=== PATIENT | female | born 1995 | race Caucasian/White ===

== ENCOUNTER 2020-07-22 14:18 | Outpatient (CLI) | payer OTHER, SELFPAY ==
--- NOTE | 2020-07-22 | ECHO_ITS ---
Patient Info Name: Jessica Garibay Age: 25 years : 1995 Gender: Female Ht: 67 in Wt: 135 lbs BSA: 1.70 m2 HR: 80 bpm BP: 114 / 75 mmHg Heart Rhythm: Sinus Rhythm Technical Quality: Good Exam Date: 07/22/2020 2:53 PM Exam Location: [facility] Pulmonary Patient Status: Outpatient Admit Date: 07/22/2020 Staff Ordering Physician: NEELAM SANCHEZ Sales And Merchandising Associate: Martin Chandler RDCS Attending Provider: NEELAM SANCHEZ Referring Physician: DANIEL DECKER; Exam Type: CA echo doppler color flow Study Info Indications R42 - Dizziness and giddiness Complete two-dimensional, color flow and Doppler transthoracic echocardiogram is performed. Strain analysis performed. History/Risk Factors Dizziness and lightheadedness; . Summary 1. Left ventricular systolic function is normal, estimated at 60-65%. 2. There is no increased left ventricular wall thickness. 3. The left ventricular diastolic function is normal. 4. Global longitudinal strain is normal at -19 %. 5. No pulmonary hypertension, estimated pulmonary arterial systolic pressure is 30 mmHg. 6. There is trace tricuspid valve regurgitation. 7. There is trace mitral valve regurgitation. 8. There is no aortic valve stenosis. Left Ventricle Left ventricular chamber dimension is normal. Left ventricular systolic function is normal, estimated at 60-65%. There is no increased left ventricular wall thickness. The left ventricular diastolic function is normal. Global longitudinal strain is normal at -19 %. Right Ventricle Right ventricular chamber dimension is normal. Right ventricular systolic function is normal. Left Atria Left atrial chamber dimension is normal. Right Atria Right atrial chamber dimension is normal. Aortic Valve The aortic valve is probable trileaflet. There is no aortic valve stenosis. There is no aortic valve regurgitation. Pulmonic Valve The pulmonic valve is not well visualized. There is trace pulmonic regurgitation. Mitral Valve The mitral valve has normal leaflets. There is trace mitral valve regurgitation. Tricuspid Valve The tricuspid valve leaflets are normal. There is trace tricuspid valve regurgitation. No pulmonary hypertension, estimated pulmonary arterial systolic pressure is 30 mmHg. Pericardium/Pleural The pericardium appears normal. There is no pericardial effusion. Inferior Vena Cava Normal inferior vena cava with >50% collapse upon inspiration consistent with normal right atrial pressure, 5 mmHg. Aorta The aortic root size at the sinus of Valsalva is normal. Left Ventricular Outflow Tract Name Value Normal LVOT 2D LVOT Diameter 2.0 cm LVOT Doppler LVOT Peak Gradient 6 mmHg LVOT Mean Gradient 4 mmHg LVOT VTI 25 cm LVOT VTI/AV VTI Ratio 0.9 LVOT Stroke Volume 76 ml LVOT CO 5.6 l/min LVOT CI 3.3 l/min/m2 Mitral Valve
== END 2020-07-22 14:19 | disposition home or self-care (01) ==
DX: Z34.92 Encounter for supervision of normal pregnancy, unspecified, second trimester (principal); R42 Dizziness and giddiness; Z3A.15 15 weeks gestation of pregnancy
CPT/HCPCS: 93306

== ENCOUNTER 2020-11-06 21:58 | Observation (INO) | payer OTHER, SELFPAY ==
--- NOTE | 2020-11-06 21:58 | OBADM ---
This patient, Jessica Garibay, admitted to the OB room OB Post 117 for observation. Patient/family oriented to hospital policies and general routines including ID bracelet, bed and alarms, visiting hours, pain management, procedures, bathroom and other care routines, personal items, smoking policy, room service/diet, and visiting hours. Patient/Family are encouraged to report perceived risks to care and to ask questions if they do not understand what they are told or what they should do.
[2020-11-06 22:09] VITALS: BP 126/83; PULSE 75; RESP 18; TEMP 36.7
--- NOTE | 2020-12-07 20:34 | PM.OBTRLD ---
OB - Triage/Final Diagnosis Visit Information Comments/Additional reasons for admission: I have assessed the risk for this patient, Jessica Garibay, and determined that she would benefit from observation care. Final Diagnosis (1) Pelvic pain: Code(s): R10.2 - Pelvic and perineal pain Status: Acute
== END 2020-11-06 23:03 | disposition home or self-care (01) ==
PROVIDERS: Admitting Provider Obstetrics & Gynecology; Visit Provider Obstetrics & Gynecology
DX: O26.893 Other specified pregnancy related conditions, third trimester (principal); R10.2 Pelvic and perineal pain; Z3A.34 34 weeks gestation of pregnancy
CPT/HCPCS: G0378; G0379

== ENCOUNTER 2020-12-07 06:16 | Outpatient (CLI) | payer OTHER, SELFPAY ==
[2020-12-07] VITALS (7 sets, daily range): BP systolic 111–125; BP diastolic 77–86; PULSE 73–82
[2020-12-07 06:47] LABS: Basophils Percent Auto 0.4 % (0.2-1.2); Eosinophils Absolute Auto 0.1 K/mm3 (0-0.3); Eosinophils Percent Auto 1.3 % (0-4.4); Hematocrit 36.4 % (37.0-47.0); Hemoglobin 11.7 g/dL (12.0-15.0); Immature Granulocyte Absolute 0.12 K/mm3 (0.00-0.031); Immature Granulocyte Percent A 1.1 % (0-0.5); Lymphocytes Absolute Auto 2.53 K/mm3 (0.9-3.2); Lymphocytes Percent Auto 22.6 % (18.3-44.2); Mean Corpuscular HGB Conc 32.1 g/dl (32-36); Mean Corpuscular Hemoglobin 28.7 pg (26-34); Mean Corpuscular Volume 89.2 fl (80-100); Mean Platelet Volume 9.6 fl (7.4-10.4); Monocytes Absolute Auto 0.5 K/mm3 (0.1-0.6); Monocytes Percent Auto 4.1 % (2.6-8.5); Neutrophils Absolute Auto 7.9 K/mm3 (1.3-6.7); Neutrophils Percent Auto 70.5 % (45.5-73.1); Platelet Count Result 347 k/mm3 (150-375); Red Blood Count 4.08 M/mm3 (4.2-5.4); Red Cell Distribution Width 13.4 % (11.5-14.5); White Blood Count 11.2 K/mm3 (4.5-10.0)
[2020-12-07 06:52] LABS: Add Urine Microscopic? YES; Appearance Urine Cloudy (Clear); Bacteria Urine 2+ /hpf; Bilirubin Urine Negative (Negative); Blood Urine Negative (Negative); Color Urine Yellow (Yellow); Glucose Urine UA Negative (Negative); Ketones Urine Negative (Negative); Leukocyte Esterase Ur Negative LEU/UL (NEGATIVE); Mucus Urine Rare /lpf; Nitrate Urine Negative (Negative); Protein Urine Negative (Negative); RBC Urine 0-2 /hpf (0-2); Specific Grav Ur 1.017 (1.001-1.035); Squamous Epithelial Cell Urine Many /hpf (Few); Transitional Epi Cells Urine Rare /hpf (None Seen); Urobilinogen Urine Negative mg/dL (<2.0)
[2020-12-07 07:17] LABS: Creatinine Urine 120.5 mg/dL; Total Protein Urine Random 8 mg/dL; Ur Ttl Prot Creatinine Ratio 0.07 mg/mg (0-0.20)
[2020-12-07 07:21] LABS: Alanine Aminotransferase 8 U/L (4-35); Albumin Level 3.8 g/dL (3.5-5.1); Alkaline Phosphatase 162 U/L (38-126); Anion Gap 6 mmol/L (8-16); Aspartate Amino Transferase 21 U/L (14-36); Bilirubin,Total 0.4 mg/dL (0.2-1.3); Blood Urea Nitrogen 7 mg/dL (7-17); Calcium 9.3 mg/dL (8.4-10.2); Carbon Dioxide 23 mmol/L (22-30); Chloride 104 mmol/L (98-107); Estimated Glomerular Filt Rate > 60; Glucose 84 mg/dL (65-105); Potassium 3.9 mmol/L (3.4-5.0); Sodium 133 mmol/L (137-145); Uric Acid 2.7 mg/dL (2.5-7.5)
--- NOTE | 2020-12-07 07:43 | PC.NURSE ---
Stephen Langley notified of upper right abd pain that shoots into her back. WNL and PIH labs. OK to dc home with labor precautions.
== END 2020-12-07 07:50 | disposition home or self-care (01) ==
LOC: ANHOBOP 06:20 → ANHOBPP 06:23
PROVIDERS: PCP Nurse Practitioner Family; Visit Provider Obstetrics & Gynecology
DX: R10.9 Unspecified abdominal pain (principal); O13.9 Gestational [pregnancy-induced] hypertension without significant proteinuria, unspecified trimester; Z3A.00 Weeks of gestation of pregnancy not specified
CPT/HCPCS: 36415; 59025; 80053; 81001; 82570; 84156; 84550; 85025; 87086; 99199

== ENCOUNTER 2020-12-09 14:35 | Inpatient (IN) | payer OTHER, SELFPAY ==
[2020-12-09] VITALS (51 sets, daily range): BP systolic 83–153; BP diastolic 50–124; PULSE 35–130; RESP 16; TEMP 36.2–36.8; O2SAT 93–100; BMI 25.2
[2020-12-09 15:09] LABS: Basophils Percent Auto 0.3 % (0.2-1.2); Eosinophils Absolute Auto 0.1 K/mm3 (0-0.3); Hematocrit 36.4 % (37.0-47.0); Immature Granulocyte Absolute 0.12 K/mm3 (0.00-0.031); Immature Granulocyte Percent A 1.1 % (0-0.5); Lymphocytes Absolute Auto 1.99 K/mm3 (0.9-3.2); Lymphocytes Percent Auto 17.9 % (18.3-44.2); Mean Corpuscular Hemoglobin 29.1 pg (26-34); Mean Corpuscular Volume 88.1 fl (80-100); Mean Platelet Volume 9.7 fl (7.4-10.4); Monocytes Absolute Auto 0.4 K/mm3 (0.1-0.6); Monocytes Percent Auto 3.1 % (2.6-8.5); Neutrophils Absolute Auto 8.5 K/mm3 (1.3-6.7); Neutrophils Percent Auto 76.6 % (45.5-73.1); Platelet Count Result 341 k/mm3 (150-375); Red Blood Count 4.13 M/mm3 (4.2-5.4); Red Cell Distribution Width 13.7 % (11.5-14.5); White Blood Count 11.1 K/mm3 (4.5-10.0)
[2020-12-09 15:20] LABS: Alanine Aminotransferase 8 U/L (4-35); Albumin Level 3.9 g/dL (3.5-5.1); Alkaline Phosphatase 170 U/L (38-126); Anion Gap 9 mmol/L (8-16); Aspartate Amino Transferase 21 U/L (14-36); Bilirubin,Total 0.3 mg/dL (0.2-1.3); Blood Urea Nitrogen 5 mg/dL (7-17); Carbon Dioxide 22 mmol/L (22-30); Chloride 105 mmol/L (98-107); Estimated Glomerular Filt Rate > 60; Glucose 106 mg/dL (65-105); Potassium 3.9 mmol/L (3.4-5.0); Sodium 136 mmol/L (137-145); Uric Acid 2.6 mg/dL (2.5-7.5)
[2020-12-09] MEDS: LACTATED RINGERS 1,000 ML 125 ML IV CONT ×2 (15:29→19:35)
[2020-12-09] MEDS: OXYTOCIN 30 UNITS/NS 500 ML 30 UNITS/500 ML BAG 6 UNITS IV CONT (15:30)
[2020-12-09] MEDS: ONDANSETRON INJ 4 MG/2 ML VIAL IV PUSH (16:05)
--- NOTE | 2020-12-09 16:40 | WPDANESEPPF ---
Anes - Initial Pre Proc Eval Procedure: labor epidural Date/Time: 12/09/20 16:40 Surgeon: Andreia Cerda MD Pre Op Diagnosis: labor pain Pre Op Diagnosis: iol Patient Data Age: 25 Gender: F Height: 1.7 m Weight: 73 kg Last Vital Signs Temp 36.6 C 12/09/20 15:30 Pulse 69 12/09/20 16:30 BP 122/70 12/09/20 16:30 Allergies Allergy/AdvReac Type Severity Reaction Status Date / Time No Known Allergies Allergy Verified 11/17/20 13:38 Home Medications Medication Instructions Recorded Confirmed Type prenat.vits,mei,ywa-iqum-grfsl 1 tablet PO DAILY 11/17/20 11/17/20 History [ #2] valacyclovir [Valtrex] 500 mg PO BID 11/17/20 11/17/20 History Laboratory Tests 12/09/20 12/09/20 12/09/20 15:02 15:02 15:02 WBC 11.1 K/mm3 H K/mm3 (4.5-10.0) RBC 4.13 M/mm3 L M/mm3 (4.2-5.4) Hgb 12.0 g/dL g/dL (12.0-15.0) Hct 36.4 % L % (37.0-47.0) MCV 88.1 fl fl (80-100) MCH 29.1 pg pg (26-34) MCHC 33.0 g/dl g/dl (32-36) RDW 13.7 % % (11.5-14.5) Plt Count 341 k/mm3 k/mm3 (150-375) MPV 9.7 fl fl (7.4-10.4) Immature Gran % (Auto) 1.1 % H % (0-0.5) Neut % (Auto) 76.6 % H % (45.5-73.1) Lymph % (Auto) 17.9 % L % (18.3-44.2) [place] % (Auto) 3.1 % % (2.6-8.5) Eos % (Auto) 1.0 % % (0-4.4) Baso % (Auto) 0.3 % % (0.2-1.2) Lymph # (Auto) 1.99 K/mm3 K/mm3 (0.9-3.2) Rush # (Auto) 0.4 K/mm3 K/mm3 (0.1-0.6) Eos # (Auto) 0.1 K/mm3 K/mm3 (0-0.3) Baso # (Auto) 0.0 K/mm3 K/mm3 (0.0-0.1) Abs Immat Gran (auto) 0.12 K/mm3 H K/mm3 (0.00-0.031) Absolute Neuts (auto) 8.5 K/mm3 H K/mm3 (1.3-6.7) Absolute Nucleated RBC 0.0 K/mm3 K/mm3 (0.0-0.012) Nucleated RBC % 0.0 % % (0.0-0.2) Sodium Potassium Chloride Carbon Dioxide Anion Gap BUN Creatinine Estim Creat Clear Calc Estimated GFR Glucose Uric Acid Calcium Total Bilirubin AST ALT Alkaline Phosphatase Total Protein Albumin RPR Pending Blood Type A Positive Antibody Screen Negative 12/09/20 15:02 WBC RBC Hgb Hct MCV MCH MCHC RDW Plt Count MPV Immature Gran % (Auto) Neut % (Auto) Lymph % (Auto) Rush % (Auto) Eos % (Auto) Baso % (Auto) Lymph # (Auto) Rush # (Auto) Eos # (Auto) Baso # (Auto) Abs Immat Gran (auto) Absolute Neuts (auto) Absolute Nucleated RBC Nucleated RBC % Sodium 136 mmol/L L mmol/L (137-145) Potassium 3.9 mmol/L mmol/L (3.4-5.0) Chloride 105 mmol/L mmol/L (98-107) Carbon Dioxide 22 mmol/L mmol/L (22-30) Anion Gap 9 mmol/L mmol/L (8-16) BUN 5 mg/dL L mg/dL (7-17) Creatinine 0.40 mg/dL L mg/dL (0.7-1.0) Estim Creat Clear Calc Not Reportable Estimated GFR > 60 (59 - ) Glucose 106 mg/dL H mg/dL (65-105) Uric Acid 2.6 mg/dL mg/dL (2.5-7.5) Calcium 9.0 mg/dL mg/dL (8.4-10.2) Total Bilirubin 0.3 mg/dL mg/dL (0.2-1.3) AST 21 U/L U/L (14-36) ALT 8 U/L U/L (4-35) Alkaline Phosphatase 170 U/L H U/L (38-126) Total Protein 7.0 g/dL g/dL (6.3-8.2) Albumin 3.9 g/dL g/dL (3.5-5.1) RPR Blood Type Antibody Screen Patient hx anesthesia problems: none Family hx anesthesia problems: none PMFSH Past Medical History Medical History (Updated 12/09/20 @ 16:41 by Santos Montoya DO) Mitral valve regurgitation Panic disorder PTSD (post-traumatic stress diso
--- NOTE | 2020-12-09 17:39 | WPDOBADMIT ---
Obstetrics - Admit Note Admission Note: record reviewed. No pertinent additions to the history and/or any subsequent changes in the physical findings that are not consistent with the expected course of the were found. Additions to the history and/or subsequent changes in the physical findings follow. None. 39.0 with elevated BPs 150-160/90s in office today. BPs wnl here. PIH labs pending. FHT category 1. pitocin on. AROM /-2 clear. Anticipate .
[2020-12-09 18:17] LABS: Amphetamine Screen Urine Negative (Negative); Barbiturate Screen Urine Negative (Negative); Benzodiazepines Screen Urine Negative (Negative); Cannabinoid Screen Urine Positive (Negative); Cocaine Screen Urine Negative (Negative); Methadone Screen Urine Negative (Negative); Opiate Screen Urine Negative (Negative); Phencyclidine Screen Urine Negative (Negative)
--- NOTE | 2020-12-09 21:01 | PM.OBPRVD ---
OB - Delivery Note Procedure Delivery date: 12/09/20 Procedure: events: Induced HTN Intrapartal events: Precipitous Labor < 3 hours Induction method: AROM and per pitocin protocol Delivery monitor: external FHT and external uterine Route of delivery: Laceration Description: None Specimen: No Quantitative Blood Loss (ml): 200 Anesthesia type: Epidural Disposition: floor Narrative: With adequate expulsive efforts by the mother, the baby's head was delivered OA. The baby's anterior shoulder was delivered under the pubic symphysis without difficulty. The posterior shoulder and the rest of the baby delivered without difficulty. The was placed on the mothers chest and suctioned and stimulated. The cord was clamped and cut after 30 seconds. Mother and baby both stable. Baby Date of : 12/09/20 Time of : 20:39 Weeks of gestation at delivery: 39 Infant gender: Male Weight (pounds): 7 Weight (ounces): 13 presentation: vertex Placenta delivery description: Spontaneous cord vessel description: 3 Vessels, Nuchal Cord and Delayed Cord Clamping score one minute: 9 score five minutes: 9
[2020-12-09] MEDS: OXYTOCIN 30 UNITS/NS 500 ML 30 UNITS/500 ML BAG 125 UNITS IV CONT (21:24)
[2020-12-09] MEDS: IBUPROFEN 600 MG TABLET PO (22:42)
[2020-12-09] MEDS: BENZOCAINE 20% AER SPR (*SP) 56 GM CAN 1 SPRAY TOPICAL (22:42)
[2020-12-09] MEDS: WITCH HAZEL 40 PADS 1 PAD TOPICAL (22:42)
--- NOTE | 2020-12-09 23:10 | OBPPTRN ---
Patient transferred to post room #284 via wheelchair. Support person present. Oriented to unit, room, information board, rooming in, admission packet and security measures. Patient verbalizes understanding. with patient.
[2020-12-10] MEDS: ACETAMINOPHEN 325 MG TABLET 650 MG PO ×2 (01:45→16:19)
[2020-12-10 04:25] VITALS: BP 111/66; PULSE 71; RESP 16; TEMP 36.5
[2020-12-10] MEDS: IBUPROFEN 600 MG TABLET PO ×2 (04:30→12:59)
[2020-12-10 05:35] LABS: Hematocrit 32.1 % (37.0-47.0); Hemoglobin 10.5 g/dL (12.0-15.0)
[2020-12-10 07:00] LABS: Rapid Plasma Reagin Non-Reactive (NonReactive)
--- NOTE | 2020-12-10 07:45 | PM.OBPNVD ---
OB - PN: Subj Subjective Date/time seen: 12/10/20 07:45 Patient comments: no complaints baby status: doing well OB - PN: Obj Data Labs CBC & Chem 7: 12/10/20 04:33 12/09/20 15:02 Labs: Laboratory Results - last 24 hr 12/09/20 12/09/20 12/09/20 15:02 15:02 15:02 WBC 11.1 H RBC 4.13 L Hgb 12.0 Hct 36.4 L MCV 88.1 MCH 29.1 MCHC 33.0 RDW 13.7 Plt Count 341 MPV 9.7 Immature Gran % (Auto) 1.1 H Neut % (Auto) 76.6 H Lymph % (Auto) 17.9 L [place] % (Auto) 3.1 Eos % (Auto) 1.0 Baso % (Auto) 0.3 Lymph # (Auto) 1.99 [place] # (Auto) 0.4 Eos # (Auto) 0.1 Baso # (Auto) 0.0 Abs Immat Gran (auto) 0.12 H Absolute Neuts (auto) 8.5 H Absolute Nucleated RBC 0.0 Nucleated RBC % 0.0 Sodium Potassium Chloride Carbon Dioxide Anion Gap BUN Creatinine Estim Creat Clear Calc Estimated GFR Glucose Uric Acid Calcium Total Bilirubin AST ALT Alkaline Phosphatase Total Protein Albumin Urine Opiates Screen Urine Methadone Screen Ur Barbiturates Screen Ur Phencyclidine Scrn Ur Amphetamine Screen U Benzodiazepines Scrn Urine Cocaine Screen U Cannabinoids Screen RPR Non-reactive Blood Type A Positive Antibody Screen Negative 12/09/20 12/09/20 12/10/20 15:02 15:02 04:33 WBC RBC Hgb 10.5 L Hct 32.1 L MCV MCH MCHC RDW Plt Count MPV Immature Gran % (Auto) Neut % (Auto) Lymph % (Auto) [place] % (Auto) Eos % (Auto) Baso % (Auto) Lymph # (Auto) [place] # (Auto) Eos # (Auto) Baso # (Auto) Abs Immat Gran (auto) Absolute Neuts (auto) Absolute Nucleated RBC Nucleated RBC % Sodium 136 L Potassium 3.9 Chloride 105 Carbon Dioxide 22 Anion Gap 9 BUN 5 L Creatinine 0.40 L Estim Creat Clear Calc Not Reportable Estimated GFR > 60 Glucose 106 H Uric Acid 2.6 Calcium 9.0 Total Bilirubin 0.3 AST 21 ALT 8 Alkaline Phosphatase 170 H Total Protein 7.0 Albumin 3.9 Urine Opiates Screen Negative Urine Methadone Screen Negative Ur Barbiturates Screen Negative Ur Phencyclidine Scrn Negative Ur Amphetamine Screen Negative U Benzodiazepines Scrn Negative Urine Cocaine Screen Negative U Cannabinoids Screen Positive A RPR Blood Type Antibody Screen OB - PN A/P Plan day: 1 Plan: routine care Time Spent With Patient Time: Total time spent is greater than 50% in coordination of care (as documented) at patient's floor/unit and/or counseling patient: Review of Systems Review of Systems: All systems reviewed & are unremarkable except as noted in HPI and below Exam Const: General: cooperative Nutritional Appearance: average body habitus and well nourished Psych: Attitude: cooperative Thought process: Normal thought process present Thought content: Yes Normal thought content present Insight: Good insight present (Psych) Judgement: Good judgement present (Psych)
[2020-12-10 08:05] VITALS: BP 113/69; PULSE 65; RESP 16; TEMP 36.8; O2SAT 100
[2020-12-10] MEDS: MULTIVIT/MIN/PREN/FOL AC/IRON TABLET 1 TAB PO (08:49)
--- NOTE | 2020-12-10 08:55 | PC.NURSE ---
Mother called out for assist with feeding. reporting is sleepy. Reviewed feeding cues, frequencies, duration of feedings, feeding elimination flow sheet, and signs of adequate intake. Demonstrated stimulation techniques to wake for feeding. Assisted with to breast. Mother was attempting latch with infant on pillow and dropping nipple into his mouth. Reviewed positioning/alignment in cross cradle, holding breast in ?U? hold and guided asymmetrical latch on. Infant able to latch correctly. nursed eagerly, with steady draws and frequent swallowing noted. Reviewed signs of a correct latch, effective nursing and suck swallow ratio. Infant would slip to shallow latch, mother reports tenderness. Demonstrated how to adjust latch more deeply while feeding. Mother reports she can feel change in latch and has no tenderness. Nipple care reviewed of lanolin after feedings, warm compresses as needed. Suggested mother stimulate while feeding to increase stimulate, increase intake and to assist with maintaining deep latch. Instructed mother to call out for RN assistance if she is unable to latch infant for feeding or she has discomfort with nursing. Instructed feeding should be initiated three hours from start of last feeding or if feeding cues are noted before. Mother voiced understanding of information shared.
--- NOTE | 2020-12-10 11:03 | WPDANLDPN2 ---
Anes-Prog Note L&D Date/Time: 12/10/20 11:03 Comfortable throughout: labor and delivery Neuraxial method: epidural Epidural/Spinal procedure site: clean & non-tender Neuro status: Neuro function grossly intact. Cardiovascular status: normal Respiratory status: normal Airway patency: baseline Mental status: baseline Post-Op hydration status: normal Vital Signs: Last Vital Signs Temp 36.8 C 12/10/20 08:05 Pulse 65 12/10/20 08:05 Resp 16 12/10/20 08:05 BP 113/69 12/10/20 08:05 Pulse Ox 100 12/10/20 08:05 Pain score (VAS): 0 I/O: Intake & Output 12/09/20 12/10/20 12/10/20 23:59 07:59 15:59 Intake Total 1000 Output Total 123 Balance 877 Post-procedural complaints: none Patient feedback: Patient satisfied with anesthetic care.
[2020-12-10 12:55] VITALS: BP 115/73; PULSE 68; RESP 16; TEMP 36.7; O2SAT 99
[2020-12-10 15:45] VITALS: BP 113/69; PULSE 70; RESP 16; TEMP 36.2; O2SAT 100
[2020-12-10 20:00] VITALS: BP 110/65; PULSE 66; PULSE 70; RESP 16; TEMP 36.6; O2SAT 100; O2SAT 97
[2020-12-11] MEDS: ACETAMINOPHEN 325 MG TABLET 650 MG PO ×2 (00:21→08:52)
[2020-12-11] MEDS: IBUPROFEN 600 MG TABLET PO (03:30)
--- NOTE | 2020-12-11 07:37 | PM.OBPNVD ---
OB - PN: Subj Subjective Date/time seen: 12/11/20 07:37 Patient comments: no complaints baby status: doing well OB - PN: Obj Data Labs CBC & Chem 7: 12/10/20 04:33 12/09/20 15:02 OB - PN A/P Plan day: 2 Plan: routine care and discharge home (F/U in 1 week for bp check) Time Spent With Patient Time: Total time spent is greater than 50% in coordination of care (as documented) at patient's floor/unit and/or counseling patient: Time with patient: less than 15 minutes Review of Systems Review of Systems: All systems reviewed & are unremarkable except as noted in HPI and below Exam Narrative: Exam Narrative: Fundus firm and vaginal flow controlled. No lower ext redness, warmth, or edema. Negative homans. Denies h/a, v/d or e/p. Reflexes normal. Const: General: comfortable Chest: Breast/axilla inspection: normal inspection of the breasts Resp: Effort & Inspection: normal respiratory effort Cardio: Rate: regular rate GI: GI Palp: Yes Soft to palpation Psych: Appearance: grossly normal Affect: normal affect Attitude: cooperative Thought content: Yes Normal thought content present Judgement: Good judgement present (Psych)
[2020-12-11 07:55] VITALS: BP 123/83; PULSE 60; RESP 16; TEMP 36.6; O2SAT 100
[2020-12-11] MEDS: DOCUSATE SODIUM 100 MG CAPSULE PO (08:54)
[2020-12-11] MEDS: MULTIVIT/MIN/PREN/FOL AC/IRON TABLET 1 TAB PO (08:55)
--- NOTE | 2020-12-11 11:30 | PC.NURSE ---
Mother is able to independently latch infant with appropriate positioning/alignment. Mother has slight tenderness that she feels is resolving with deeper latch, is feeding as required and waking to feed if needed. has had at least 8 effective feedings in the past 24 hours, and is currently meeting outcomes for weight, output, jaundice and feeding frequencies. Mother states she feels confident to continue effective at home. Reviewed transition to breast milk, signs of adequate intake, and engorgement/relief. Instructed to call ICP if intake/output less than required. Reviewed regular medications mother is taking. Information provided per Graciela. Reviewed community resources on [facility] and in the Mom/Baby guide. Information on outpatient services provided. Mother has no further questions at this time.
--- NOTE | 2020-12-11 13:17 | PCCCNOTE ---
Addendum entered by JUDITH Barrientos 12/11/20 15:19: Received email confirmation that DCFS will contact family to offer in home services. Original Note: Care Coordination Consult: Met with pt. and PRINCE Lynch during rounds. This is pt.'s second child, first child is 3 years old at home. This is Syed's first child. Pt. lives at home with Syed. Pt. has supportive family. Has all necessary supplies at home including a carseat, cribs, clothing, and diapers. Pt. plans to breastfeed. Pt. was educated and provided resources for and using marijuana. Also was provided resources. Pt. plans to use [facility] services at discharge. Reports she recreationally smokes marijuana and has spoken to her oven equipment repairer about smoking and . Pt. declines a reliance on the marijuana. Baby meconium pending. Submitted online DCFS report # [id number].
--- NOTE | 2020-12-11 14:34 | PC.NURSE ---
1225 Pt and FOB stated they reviewed pt's and baby's discharge papers, and had no questions for nurse. Mother signed discharge papers in understanding.
[2020-12-12 07:50] VITALS: BP 113/62; PULSE 73; RESP 16; TEMP 37.3; O2SAT 98
--- NOTE | 2020-12-27 10:11 | PM.OBDSVD ---
DS: Admitting Diagnosis Admitting Diagnosis Admitting Diagnosis: Labor OB - DS: Summary OB Procedures : None OB Procedures Intrapartum: Spontaneous Vag Delivery OB Procedures: : None Time Spent with Patient Time attestation: Total time spent providing and/or coordinating discharge services: Discharge Plan Discharge Attending physician on discharge: Andreia Cerda Consulting providers: Tabby Canas ; Deloris Langley ; Santos Montoya Discharging Clinician: Ran Bertrand Patient Disposition: Home, Self-Care Activity: pelvic rest Diet: as tolerated Discharge Instructions: Education: Mom and Baby Guide Given to: Mother Follow-Up: Call your delivering provider's office for an appointment to be seen in: 4 Weeks Mom and baby should come to the [facility] for the follow-up appointment. Appointment Date/Time: December 12, 2020 at 8:00 am What to expect at your follow-up visit: Blood Pressure Check Physical Assessment Call [phone] if you are unable to keep your appointment time. BREAST CARE: * Wear a snug supportive bra. * For engorgement discomfort: Breast Feeding: * Apply warm moist washcloths * Express milk as needed to relieve engorgement * Wear loose clothing * For sore nipples: * Identify correct latch-on * Apply warm moist washcloths before and after nursing * Air dry nipples after nursing * May apply Lansinoh cream to nipples EPISIOTOMY/PERINEAL CARE: * Until bleeding stops, use your franky bottle after urinating * Change your pad frequently throughout the day * You may take sitz baths several times a day (fill your bathtub with warm water and soak for 20 minutes.) Do NOT bathe in the water * No tub baths until seen by your physician - You may shower ACTIVITY: * Rest as much as possible. * Do not exercise or lift anything heavier than your baby (such as laundry or other children.) * Avoid stairs or driving as much as possible. * Do not put anything into the vagina. No douching, tampons, or sexual activity until seen by physician. NOTIFY PHYSICIAN IF YOU HAVE ANY QUESTIONS OR IF ANY OF THE FOLLOWING SYMPTOMS OCCUR: * If your perineum becomes red, swollen, or more painful than what you have experienced in the hospital. * If your vaginal bleeding becomes foul smelling. * If your vaginal bleeding becomes more heavy than a period or if your bleeding changes from pink to bright red. However, you may pass an occasional walnut-sized clot once or twice for the first week . * If you experience a sharp, shooting pain in you calves. * If you discover a hard, reddened area on your breast or if you experience flu-like symptoms. *Temperature of 100.4 or higher DIET: * Eat regular, well-balanced meals. * Drink plenty of fluids daily. If , drink to thirst. Stand Alone Forms: General Discharge Information Follow-up/Referrals: Andreia Cerda MD [Physician] - Discharge Medications: Continued valacyclovir [Valtrex] 500 mg Tablet 500 mg PO BID RF: 0 prenat.vits,mei,shr-ynmp-fnzpt Tablet 1 tablet PO DAILY RF: 0 famotidine [Pepcid] 20 mg Tablet 20 mg PO DAILY RF: 0 One Daily 1 tablet PO DAILY RF: 0 Date of admission: 12/09/20 14:35 Primary Care Provider: Dawn,Monika Reeder Admitting Provider: Andreia Cerda Attending physician on admission: Andreia Cerda Condition: Stable
== END 2020-12-11 12:42 | disposition home or self-care (01) | DRG 560 ==
LOC: ANHLDR 14:38 → ANHOB2 23:10
PROVIDERS: Admitting Provider Obstetrics & Gynecology; PCP Nurse Practitioner Family; Visit Provider Obstetrics & Gynecology
DX: O62.3 Precipitate labor (principal); O13.4 Gestational [pregnancy-induced] hypertension without significant proteinuria, complicating childbirth; O69.81X0 Labor and delivery complicated by cord around neck, without compression, not applicable or unspecified; Z3A.39 39 weeks gestation of pregnancy; Z37.0 Single live birth
CPT/HCPCS: 36415; 80053; 80307; 84550; 85014; 85018; 85025; 86592; 86850; 86900; 86901; A9270; J2405; J2590; J2795; J7120

== ENCOUNTER 2023-01-18 15:02 | Outpatient (CLI) | payer OTHER, SELFPAY ==
[2023-01-18 16:03] LABS: Lithium < 0.2 mmol/L (0.6-1.2)
== END 2023-01-18 15:03 | disposition home or self-care (01) ==
LOC: ANHSURGERY 15:05
PROVIDERS: Anesthesiology; PCP Nurse Practitioner Family; Visit Provider Obstetrics & Gynecology
DX: Z79.899 Other long term (current) drug therapy (principal)
CPT/HCPCS: 36415; 80178

== ENCOUNTER 2023-01-26 01:18 | Day surgery (SDC) | payer OTHER, SELFPAY ==
[2023-01-17 12:58] VITALS: BMI 20.6
--- NOTE | 2023-01-17 13:03 | PC.NURSE ---
Report to the Outpatient Waiting Room, entrance under the green pavilion located off [facility], at time 0600 on date 01/26/23. Planned Procedure Time: 0730. Time changes happen often and if your time is changed the preop area will call you the afternoon before. - You and your visitor will be asked to self-screen and do not enter if you have any COVID symptoms. - A mask is optional within the hospital at this time. Patients may have clear liquids (water, carbonated beverages, clear teas, apple juice) until 3 hours prior to surgery with a maximum of 20 ounces. - No food from midnight until time of surgery Take the following medications with a SIP of water the morning of surgery: HYDROXYZINE, LAMOTRIGINE, LITHIUM, VALACYCLOVIR DO NOT STOP ANY OF YOUR OTHER PRESCRIPTION MEDICATIONS PRIOR TO SURGERY ?EXCEPT THE FOLLOWING Medications to discontinue per physician: N/A Date to take last dose: N/A Please no make-up, nail estonian, hairspray, perfume, deodorant, or body powder the day of surgery. No jewelry (including any body piercings) or valuables the day of surgery, leave them at home. Please take a shower or bath the night before, or the morning of, surgery with an antibacterial soap. Wear comfortable, loose fitting clothing. - Jewelry must be removed prior to entering the operating room. Rings and piercings that are not removed may be cut off. - The hospital will not accept responsibility for valuables. - Please leave all valuables, including medications, at home the day of surgery. If you are going home after surgery, a licensed freight delivery driver must drive you home. - NO public transportation without another adult if you receive anesthesia. - We recommend that an adult stay with you for 24 hours following discharge. - We also recommend that you do not drive, make important decision, drink alcoholic beverages, or take any drugs that were not prescribed by your health care provider for at least 24 hours after your discharge time. Follow any additional instructions given to you from your surgeon. If you or anyone in your household have experienced Covid symptoms in the past week, please notify your surgeon or the nurse liaison at the phone number below for possible testing. Telephone instructions given to PT - ORI MCKNIGHT and asked if any additional questions and then verbalized understanding. Patient advised to call surgeon office or pre surgery nurse liaison [phone] if any additional questions.
[2023-01-26 06:29] VITALS: BP 130/84; PULSE 75; RESP 16; TEMP 36.9; O2SAT 99
[2023-01-26] MEDS: LACTATED RINGERS 1,000 ML 30 ML IV CONT (06:45)
[2023-01-26] MEDS: ACETAMINOPHEN 500 MG TABLET 1000 MG PO (06:48)
--- NOTE | 2023-01-26 07:00 | P.PNAN_ITS ---
Anes - Initial Pre Proc Eval Procedure: Operation Date: 01/26/23 07:30 Proposed Procedures p Loop Electrical Excision Procedure - Andreia Cerda MD Date/Time: 01/26/23 07:00 Surgeon: Andreia Cerda MD Pre Op Diagnosis: Marleni Patient Data Age: 27 Gender: F Height: 1.7 m Weight: 58.7 kg Last Vital Signs Temp 36.9 C 01/26/23 06:29 Pulse 75 01/26/23 06:29 Resp 16 01/26/23 06:29 BP 130/84 01/26/23 06:29 Pulse Ox 99 01/26/23 06:29 O2 Del Method Room Air 01/26/23 06:29 Allergies Allergy/AdvReac Type Severity Reaction Status Date / Time No Known Allergies Allergy Verified 01/26/23 06:15 Home Medications Medication Instructions Recorded Confirmed Type valacyclovir 500 mg tablet 500 mg PO BID 11/17/20 01/26/23 History (Valtrex) hydroxyzine pamoate 50 mg capsule 50 mg PO TID PRN Anxiety 01/17/23 01/26/23 History lamotrigine 200 mg tablet 200 mg PO DAILY 01/17/23 01/26/23 History lithium carbonate 300 mg 600 mg PO BID 01/17/23 01/26/23 History tablet,extended release medroxyprogesterone 150 mg/mL 150 mg IM [id number] 01/17/23 01/26/23 History intramuscular suspension Patient hx anesthesia problems: none Family hx anesthesia problems: none Results Review: All pre-operative results and documents have been reviewed as part of the pre- operative evaluation. [facility] Past Medical History Medical History Mitral valve regurgitation Panic disorder PTSD (post-traumatic stress disorder) Family History Family History Father Renal cancer Congestive heart failure Hypertension Grandparent Diabetes mellitus Mother IBS (irritable bowel syndrome) Social History Social History Smoking status: Current every day smoker Tobacco type: e-cigarettes/vaping Alcohol intake: never Substance use: never Substance use type: does not use Living arrangements: with family Additional living arrangements comments: BOYFRIEND AND CHILDREN Spiritual care concerns: No Anes - Eval Final PreProcedure Day of Procedure 01/26/23 07:00 Patient weight: normal Heart: regular rate and rhythm Lungs: clear to auscultation Airway: Mallampati scale class II Neurological: alert and oriented Last oral intake: >/= 8 hours ASA classification: III Emergent: no Anesthetic plan: proceed Anesthesia type and monitoring: general GIVS and standard monitoring Results Review: All pre-operative results and documents have been reviewed as part of the pre- operative evaluation. Informed Consent: The patient's anesthetic plan and its attendant risks and benefits were discussed with the patient/family/POA. Questions were solicited and answers provided to the satisfaction of the patient/family/POA.
--- NOTE | 2023-01-26 07:07 | PM.IMHP ---
H&P: HPI History of Present Illness Date/Time: 01/26/23 07:07 Chief Complaint: Jessica is a 27yo here for LEEP for CIN2. ECC was neg. Plans 1 more baby. ON depo provera currently. Review of Systems Review of Systems: All systems reviewed & are unremarkable except as noted in HPI and below PMFSH Past Medical History Medical History Mitral valve regurgitation Panic disorder PTSD (post-traumatic stress disorder) Family History Family History Father Renal cancer Congestive heart failure Hypertension Grandparent Diabetes mellitus Mother IBS (irritable bowel syndrome) Social History Social History Smoking status: Current every day smoker Tobacco type: e-cigarettes/vaping Alcohol intake: never Substance use: never Substance use type: does not use Living arrangements: with family Additional living arrangements comments: BOYFRIEND AND CHILDREN Spiritual care concerns: No Meds Home Medications and Allergies Home Medications Medication Instructions Recorded Confirmed Type valacyclovir 500 mg tablet 500 mg PO BID 11/17/20 01/26/23 History (Valtrex) hydroxyzine pamoate 50 mg capsule 50 mg PO TID PRN Anxiety 01/17/23 01/26/23 History lamotrigine 200 mg tablet 200 mg PO DAILY 01/17/23 01/26/23 History lithium carbonate 300 mg 600 mg PO BID 01/17/23 01/26/23 History tablet,extended release medroxyprogesterone 150 mg/mL 150 mg IM [id number] 01/17/23 01/26/23 History intramuscular suspension Allergies Allergy/AdvReac Type Severity Reaction Status Date / Time No Known Allergies Allergy Verified 01/26/23 06:15 Vital Signs Vital Signs - 24 hr 01/26/23 06:29 Temperature 98.4 F Pulse Rate 75 Respiratory Rate 16 Blood Pressure 130/84 Pulse Oximetry 99 Oxygen Delivery Room Air Exam Const: General: no acute distress Resp: Effort & Inspection: normal respiratory effort Auscultation: clear to auscultation bilaterally Cardio: Rate: regular rate Rhythm: regular rhythm GI: GI Palp: Yes Soft to palpation Extrem: General: normal to inspection Assessment and Plan Assessment and plan (1) BHAVIK II (cervical intraepithelial neoplasia II): Code(s): N87.1 - Moderate cervical dysplasia Status: Acute Plan LEEP for CIN2. Discussed RBA, will proceed.
--- NOTE | 2023-01-26 07:10 | WPDHPUPDATE1 ---
History and Physical Update Update Date/Time: 01/26/23 07:10 History and Physical has been reviewed, including an updated exam of the patient. There are NO changes in the patient's condition. Risks, benefits, and alternatives have been discussed and questions answered. Patient agrees to proceed with procedure.
[2023-01-26] MEDS: BUPivacaine HCL 0.25% PF 10 ML VIAL INFILTRATE (07:34)
[2023-01-26] MEDS: KETOROLAC 30 MG/ML VIAL (*BKC) IV PUSH (07:34)
[2023-01-26 07:45] VITALS: BP 88/49; PULSE 61; RESP 14; O2SAT 98
--- NOTE | 2023-01-26 07:45 | P.OP_ITS ---
Procedure Note - Detailed Date of Procedure 01/26/23 Pre-op Diagnosis CIN2 Post-op Diagnosis Same Procedure Performed Loop Electrosurgical Excision Procedure Surgeon Andreia Cerda MD [employer]ry Go Round Attendant none Anesthesia MAC Indications CIN2, ECC neg Findings very small area of dysplasia seen with lugols Description of Procedure The patient was taken to the OR and placed in dorthal lithotomy in [facility]. She received MAC anesthesia. A coated speculum with attached suction was placed and 10cc of 0.25% marcaine with epinephrine was instilled in a paracervical block. Lugols solution was placed on the cervix to highlight the dysplastic cells. Using loop cautery set to 50 cut, the dysplastic area was excised and send to pathology. Ball cautery set to 50 coagulate was used for hemostasis, followed by Monsel's solution. The speculum was removed. The patient tolerated the procedure well. Estimated Blood Loss 5 Drains No Packing No Pathology Yes Complications No immediate complications Condition Stable Disposition Same day
[2023-01-26 08:15] VITALS: BP 98/60; PULSE 61; RESP 20
[2023-01-26 08:40] VITALS: BP 109/78; PULSE 53; RESP 20
== END 2023-01-26 08:51 | disposition home or self-care (01) ==
PROVIDERS: PCP Nurse Practitioner Family; Visit Provider Obstetrics & Gynecology
PROC: 0UBC7ZZ Excision of Cervix, Via Natural or Artificial Opening (ICD-10-PCS; CPT 57522; principal; 2023-01-26 07:30)
DX: N87.1 Moderate cervical dysplasia (principal); I34.0 Nonrheumatic mitral (valve) insufficiency; F41.0 Panic disorder [episodic paroxysmal anxiety]; F43.10 Post-traumatic stress disorder, unspecified; F17.290 Nicotine dependence, other tobacco product, uncomplicated
CPT/HCPCS: 57522; 88307; A9270; J1885; J2250; J2704; J3010; J7120

== ENCOUNTER 2023-02-26 16:31 | Emergency (ER) | payer OTHER, SELFPAY ==
--- NOTE | ~2023-02-26 | CT_ITS ---
EXAMINATION: CT abdomen pelvis w con INDICATION: Lower abdominal pain TECHNIQUE: Computed tomographic images of the abdomen and pelvis were obtained after the administrati on of 100 cc of Omnipaque 350 intravenous contrast. The dose-length product (DLP) was 230.16 mGy-cm. Automated exposure control and iterative reconstruction technique were employed. COMPARISON: 11/20/2013 FINDINGS: The lung bases are clear. The heart size is normal. Punctate calcifications in an otherwise normal spleen likely represent healed granulomatous disease. The liver, pancreas, gallbladder, and a drenal glands are normal. The kidneys are unremarkable. No pathologically enlarged abdominal or pelvi c lymph nodes are identified. No free intraperitoneal gas or evidence of bowel obstruction. There is prominence of the periuterine veins. The visualized osseous structures are unremarkable. There is a s mall amount of free fluid in the pelvis, likely physiologic. IMPRESSION: 1. Prominence of the periuterine veins which can be seen with pelvic congestion syndrome. Reviewed, dictated and finalized at location F.
--- NOTE | ~2023-02-26 | US_ITS ---
EXAMINATION: US pelvic complete DATE: 02/26/2023 18:24 INDICATION: Left lower quadrant pain TECHNIQUE: Multiple transabdominal sonographic images of the pelvis were obtained. COMPARISON: None. FINDINGS: The uterus measures 7.9 x 2.1 x 4.8 cm. The endometrial complex measures 3 mm. The right ov shruthi measures 3.6 x 1.7 x 2.5 cm. The left ovary measures 2.9 x 1.9 x 2.1 cm. There is normal vascular flow in the ovaries. There is no free fluid in the pelvis. IMPRESSION: 1. No sonographic correlate for the patient's symptoms. Reviewed, dictated and finalized at location F.
[2023-02-26 16:32] VITALS: BP 112/71; PULSE 100; RESP 18; TEMP 36.7; O2SAT 98
[2023-02-26 16:54] LABS: Basophils Percent Auto 0.3 % (0.2-1.2); Eosinophils Percent Auto 0.1 % (0-4.4); Hematocrit 40.3 % (37.0-47.0); Hemoglobin 13.1 g/dL (12.0-15.0); Immature Granulocyte Absolute 0.04 K/mm3 (0.00-0.031); Immature Granulocyte Percent A 0.4 % (0-0.5); Lymphocytes Absolute Auto 0.19 K/mm3 (0.9-3.2); Mean Corpuscular HGB Conc 32.5 g/dl (32-36); Mean Corpuscular Hemoglobin 27.9 pg (26-34); Mean Corpuscular Volume 85.9 fl (80-100); Mean Platelet Volume 8.5 fl (7.4-10.4); Monocytes Absolute Auto 0.3 K/mm3 (0.1-0.6); Monocytes Percent Auto 3.2 % (2.6-8.5); Neutrophils Absolute Auto 8.9 K/mm3 (1.3-6.7); Platelet Count Result 338 k/mm3 (150-375); Red Blood Count 4.69 M/mm3 (4.2-5.4); Red Cell Distribution Width 12.6 % (11.5-14.5); White Blood Count 9.5 K/mm3 (4.5-10.0)
[2023-02-26 16:55] LABS: Appearance Urine Clear (Clear); Bilirubin Urine Negative (Negative); Blood Urine Negative (Negative); Color Urine Yellow (Yellow); Glucose Urine UA Negative (Negative); Ketones Urine 2+ mg/dL (Negative); Leukocyte Esterase Ur Negative LEU/UL (Negative); Nitrate Urine Negative (Negative); Protein Urine Negative (Negative); Specific Grav Ur 1.009 (1.001-1.035); Urobilinogen Urine 0.2 mg/dL (<2.0)
[2023-02-26 17:08] LABS: Alanine Aminotransferase 17 U/L (6-35); Albumin Level 5.1 g/dL (3.5-5.1); Alkaline Phosphatase 60 U/L (38-126); Anion Gap 12 mmol/L (8-16); Aspartate Amino Transferase 22 U/L (14-36); Bilirubin,Total 0.8 mg/dL (0.2-1.3); Blood Urea Nitrogen 8 mg/dL (7-17); Calcium 9.4 mg/dL (8.4-10.2); Carbon Dioxide 23 mmol/L (22-30); Chloride 101 mmol/L (98-107); Estimated CRCL calculation 90 ml/min; Estimated Glomerular Filt Rate > 60; Glucose 95 mg/dL (65-110); Lipase 18 U/L (23-300); Potassium 3.6 mmol/L (3.4-5.0); Sodium 136 mmol/L (137-145)
--- NOTE | 2023-02-26 17:24 | ED.ABDPAIN ---
HPI - Abdominal Pain General Chief Complaint: Abdominal Pain Stated Complaint: dehydrated, abd pain Time Seen by Provider: 02/26/23 16:38 History of Present Illness HPI narrative: 27-year-old female presented to the emergency department evaluation of cute onset of left lower quadrant pain that radiates to her back. Patient states pain started approximate 1130. Patient does report associated nausea and vomiting secondary to the intensity of the pain. Patient denies any prior history of kidney stones and denies any hematuria or pain with urination. Patient does report a history of ovarian cyst but no prior history of torsion. Patient denies any vaginal bleeding vaginal discharge. Related Data Home Medications Medication Instructions Recorded Confirmed hydroxyzine pamoate 50 mg capsule 50 mg PO TID PRN Anxiety 01/17/23 01/26/23 lamotrigine 200 mg tablet 200 mg PO DAILY 01/17/23 01/26/23 lithium carbonate 300 mg 600 mg PO BID 01/17/23 01/26/23 tablet,extended release medroxyprogesterone 150 mg/mL 150 mg IM [id number] 01/17/23 01/26/23 intramuscular suspension trazodone 50 mg tablet 50 mg 02/26/23 Allergies Allergy/AdvReac Type Severity Reaction Status Date / Time No Known Allergies Allergy Verified 02/26/23 16:50 Review of Systems Review of Systems: All systems reviewed & are unremarkable except as noted in HPI and below PMFSH Past Medical History Medical History Mitral valve regurgitation Panic disorder PTSD (post-traumatic stress disorder) Family History Family History Father Renal cancer Congestive heart failure Hypertension Grandparent Diabetes mellitus Mother IBS (irritable bowel syndrome) Social History Social History Smoking status: Current every day smoker Tobacco type: e-cigarettes/vaping Alcohol intake: never Substance use: never Substance use type: does not use Living arrangements: with family Additional living arrangements comments: BOYFRIEND AND CHILDREN Spiritual care concerns: No Exam Narrative: APPEARANCE: Uncomfortable appearing HEAD: normocephalic, atraumatic. EYES: PERRLA/EOMI, conjunctivae clear. NOSE: Normal no drainage NECK: Supple. No adenopathy, no masses. RESPIRATORY: Airway patent, respirations nonlabored. Clear to auscultation bilaterally, no rales, rhonchi, wheezing. CARDIOVASCULAR: Regular rate and rhythm without murmurs rubs or gallops. ABDOMINAL: Left lower quadrant pain MUSCULOSKELETAL: Moves all extremities. Strength/ROM intact, No edema, No calf tenderness. NEURO: Alert. Cranial nerves II through XII intact. SKIN: Warm, dry. Normal Color Course Course Emergency Course: 27-year-old female presented the emergency department for evaluation of cute onset of left lower quadrant pain. Patient was afebrile with no leukocytosis and stable hemoglobin. Patient's urine test was negative. Patient had no significant abnormalities on her CMP. UA showed no evidence of a urinary tract infection. Ultrasound was ordered to evaluate for torsion or ovarian cyst and was negative. CT scan was ordered due to the patient having intense left lower quadrant pain and CT scan did show possible pelvic venous congestion. On reevaluation patient states that her pain is improved. Patient was updated the results of her work-up and she was comfortable with the plan for close follow-up with her FIELD CARE MANAGER, Dr. Cerda. All question concerns were addressed and patient was well-appearing at time of discharge. Vital Signs Vital signs: Vital Signs Temperature 98.1 F 02/26/23 16:32 Pulse Rate 100 02/26/23 16:32 Respiratory Rate 18 02/26/23 16:32 Blood Pressure 112/71 02/26/23 16:32 Pulse Oximetry 98 02/26/23 16:32 Temperature 98.1 F 02/26/23 16:32 Pulse Rate 79
[2023-02-26] MEDS: ONDANSETRON INJ 4 MG/2 ML VIAL IV PUSH (17:27)
[2023-02-26] MEDS: SODIUM CHLORIDE 0.9% IV 1,000 ML 999 ML IV CONT ×2 (17:27→17:49)
[2023-02-26] MEDS: HYDROmorphone HCL INJ (*CRX) 1 MG/ML SYR IV PUSH (17:27)
[2023-02-26 17:30] VITALS: BP 109/62; PULSE 88; RESP 16; O2SAT 100
[2023-02-26 17:32] LABS: Add Urine Microscopic? NO
[2023-02-26 19:09] VITALS: BP 116/78; PULSE 93; RESP 16; O2SAT 98
[2023-02-26 20:11] VITALS: BP 108/67; PULSE 79; RESP 16; O2SAT 98
== END 2023-02-26 20:12 | disposition home or self-care (01) ==
PROVIDERS: Emergency Provider Emergency Medicine; PCP Nurse Practitioner Family
DX: R10.2 Pelvic and perineal pain (principal); I34.0 Nonrheumatic mitral (valve) insufficiency; F43.10 Post-traumatic stress disorder, unspecified; F41.0 Panic disorder [episodic paroxysmal anxiety]; F17.290 Nicotine dependence, other tobacco product, uncomplicated
CPT/HCPCS: 36415; 74177; 76856; 80053; 81003; 81025; 83690; 85025; 96361; 96374; 96375; 99284; J1170; J2405; J7030; Q9967

== ENCOUNTER 2024-12-13 12:48 | Outpatient (CLI) | payer OTHER, SELFPAY ==
--- NOTE | 2024-12-13 13:00 | ECG_ITS ---
Test Date: 2024-12-13 13:14:49 Measurements Intervals [place] Rate: 58 P: -42 DC: 148 QRS: 75 QRSD: 106 T: 43 QT: 395 QTc: 389 Interpretive Statements SINUS BRADYCARDIA INCOMPLETE RIGHT BUNDLE BRANCH BLOCK BORDERLINE ECG No previous ECG available for comparison Electronically Signed On 12-13-2024 13:19:47 CDT by Ilan Ashton D.O.
--- OUTSIDE RECORDS SUMMARY | 2024-12-13 13:30 | XMS_ITS | Clinical Summary ---
Author Organization [facility] [place] [address] [facility] [address] Address [address] [place] [address] Care Team Providers Care Stope Miner Name Role Phone Monika Seymour NP Primary Care Provider [phone] Allergies No known active allergies Medications etonogestreL (NEXPLANON) 68 mg implantIndication s: Contraception Active buPROPion SR (WELLBUTRIN SR) 150 mg 12 hr tablet bupropion HCl SR 150 mg tablet,12 hr sustained-relea se Active lamoTRIgine (LaMICtal) 25 mg tablet lamotrigine 25 mg tablet Active Active Problems Problem Noted Date Diagnosed Date Lightheadedness 10/07/2020 Encounters Date Type Department Care Team Description 10/31/2024 Telephone [facility] Cardiology [address] [facility] [address] [place] [address] Nomi Jacobs MD from Last 3 Months Surgical History Surgery Date Site/Laterality Comments DILATION AND CURETTAGE, DIAGNOSTIC / THERAPEUTIC Family History Relation Name Status Comments Father Alive Mother Alive Social History Tobacco Use Types Packs/Day Years Used Date Smoking Tobacco: Former Cigarettes Q uit: 10/08/2019 Smokeless Tobacco: Never Personal Safety Answer Date Recorded Getting School Help Needed Not on file 09/10 Comments Unknown Sex and Gender Information Value Date Recorded Sex Assigned at Not on file Legal Sex Female 6:48 AM [employer] Gender Identity Not on file Sexual Orientation Not on file Obstetrics History Last Filed Vital Signs Vital Sign Reading Time Taken Comments Blood Pressure 104/66 09/03/2021 10:01 AM [employer] Pulse 70 09/03/2021 10:01 AM [employer] Temperature - - Respiratory Rate - - Oxygen Saturation 98% 09/03/2021 10:01 AM [employer] Inhaled Oxygen Concentration - - Weight 55.8 kg (123 lb) 09/03/2021 10:01 AM [employer] Height 170.2 cm (5' 7) 09/03/2021 10:01 AM [employer] Body Mass Index 19.26 09/03/2021 10:01 AM [employer] Plan of Treatment Not on file Insurance [facility] Care Teams Stope Miner Relationship Specialty Start Date End Date Monika Seymour NP [address] [place] [id number] PCP - General Family Practice 10/07/20
--- OUTSIDE RECORDS SUMMARY | 2024-12-13 13:30 | XMS_ITS | Referral Summary ---
Author Organization [facility] [place] [address] [facility] [address] Address [address] [place] [address] Care Team Providers Care Hand Sample Maker Name Role Phone Monika Seymour NP Primary Care Provider [phone] Encounters Date Type Department Care Team Description 10/31/2024 Telephone [facility] Cardiology [address] [place] [address] Nomi Jacobs MD from Last 3 Months Allergies No known active allergies Medications etonogestreL (NEXPLANON) 68 mg implantIndication s: Contraception Active buPROPion SR (WELLBUTRIN SR) 150 mg 12 hr tablet bupropion HCl SR 150 mg tablet,12 hr sustained-relea se Active lamoTRIgine (LaMICtal) 25 mg tablet lamotrigine 25 mg tablet Active Active Problems Problem Noted Date Diagnosed Date Lightheadedness 10/07/2020 Social History Tobacco Use Types Packs/Day Years Used Date Smoking Tobacco: Former Cigarettes Q uit: 10/08/2019 Smokeless Tobacco: Never Personal Safety Answer Date Recorded Getting School Help Needed Not on file 09/10 Comments Unknown Sex and Gender Information Value Date Recorded Sex Assigned at Not on file Legal Sex Female 6:48 AM [employer] Gender Identity Not on file Sexual Orientation Not on file Last Filed Vital Signs Vital Sign Reading Time Taken Comments Blood Pressure 104/66 09/03/2021 10:01 AM [employer] Pulse 70 09/03/2021 10:01 AM [employer]ARD [employer] Temperature - - Respiratory Rate - - Oxygen Saturation 98% 09/03/2021 10:01 AM HARD CAND[employer] SPINNER Inhaled Oxygen Concentration - - Weight 55.8 kg (123 lb) 09/03/2021 10:01 AM HARD C[employer] SPIN[employer] Height 170.2 cm (5' 7) 09/03/2021 10:01 AM HARD C[employer] SPIN[employer] Body Mass Index 19.26 09/03/2021 10:01 AM HARD CAND[employer] SPINNER Plan of Treatment Not on file Insurance [facility] Care Teams Hand Sample Maker Relationship Specialty Start Date End Date Monika Seymour NP [address] [place] [address] [place] [address] PCP - General Family Practice 10/07/20
--- OUTSIDE RECORDS SUMMARY | 2024-12-13 13:30 | XMS_ITS | Patient Health Record ---
Author Organization [facility] Address [address] [place] [address] Care Team Providers Care Drive Thru Order Taker Name Role Phone Sae Buenrostro Primary Care Provider Allergies No Known Allergies Reason For Referral Reason Therapy - client wou ld like to engage in therapy and needs information on this service. Diagnosis 1 Bipolar affective di sorder (F31.9) Diagnosis 2 Borderline personali ty disorder (F60.3) Referral Organization [facility], [facility] Referring Provider First Name Sae Referring Provider Last Name Porter Referring Provider Speciality Psychiatry Referred Provider Specialty [facility]al [facility] Clinical Notes Flor Gu 12/04/2024 08:52:31 AM >HN attempted to call the client. HN had to leave a VM for the client with the phone number to [place] so she could call them to complete the intake for therapy and get her first patient appt set up. Referral Priority Routine Medications Medication SIG (Take, Route, Fr equency, Duration) Notes Start Date End Date Status Vraylar 1.5 MG 1 capsule Orally Once a day 025 Active Mirtazapine 15 MG 1 tablet at bedtime Orally Once a day 11/28/2024 Active Social History Tobacco Use: Social History Observation Description Date Details (start date - stop date) Former Smoker NA - 10/09/2024 Sex Assigned At : Social History Observation Description Sex Assigned At Female Tobacco Control (Standard) Question Answer Notes Tobacco use: Former smoker When did you stop smoking? 10/09/2024 How long has it been since you last smoked? Less than 1 month Additional Findings: Tobacco user e-cigarette Additional Findings: Tobacco non-user Ex-cigaret te smoker Problems Problem Type SNOMED Code ICD Code Onset Dates Problem Status W/U Status Risk Notes Problem Borderline personality disorder () Borderline personality disorder (F60.3) Active confirmed Problem Bipolar affective disorder (F31.9) Active confirmed Vital Signs Heart Rate 82 /min 12/06/2024 Temperature 98.6 degrees Fahrenheit 12/06/2024 Respiratory Rate 16 /min 12/06/2024 Blood pressure diastolic 70 mm Hg 12/06/2024 Oximetry 98 % 12/06/2024 Height 5ft7in in 12/06/2024 Blood pressure systolic 112 mm Hg 12/06/2024 Weight 116.6 lbs 12/06/2024 BMI 18.26 kg/m2 12/06/2024 Encounters Encounter Location Date Provider Diagnosis [address] [place] [address] 08/22/2024 Sae Buenrostro Bipolar II disorder F31.81 and Borderline personality disorder F60.[address] [address] 11/28/2024 Sae Buenrostro Bipolar affective disorder F31.9 and Borderline personality disorder F60.[address] [place] [address] 12/06/2024 Sae Buenrostro Bipolar affective disorder F31.9 and Borderline personality disorder F60.[address] [address] 08/22/2024 Sae Buenrostro Assessments Encounter Date Diagnosis (ICD Code) Assessment Notes Treatment Notes Treatment Clinical Notes Section Notes 08/22/2024 Bipolar II disorder (ICD-10 - F31.81) Client with prior dx of bipolar affect and borderline personality which appear to match screening done during evaluation. Client is interested in starting a medication that will make my appetite increase, my sleep better, improve my mood and my anxiety. She initially wanted to be put back on lamotrigine. Discussed that lamotrigine alone would likely not increase appetite/blood sugars the way she wants this targeted and for all the areas she is wanting to treat, it may be beneficial to trial extended release Seroquel to see if monotherapy can be used to achieve her goals. She is open to this and 50 mg ER of Quetiapine is ordered after risk versus benefit discussion takes place. Should this fail, lamotrigine can be trialed next. 08/22/2024 Borderline personality disorder (ICD-10 - F60.3) Client with prior dx of bipolar affect and borderline personality which appear to match screening done during evaluation. Client is interested in starting a medication that will make my appetite increase, my sleep better, improve my mood and my anxiety. She initially wanted to be put back on lamotrigine. Discussed that lamotrigine alone would likely not increase appetite/blood sugars the way she wants this targeted and for all the areas she is wanting to treat, it may be beneficial to trial extended release Seroquel to see if monotherapy can be used to achieve her goals. She is open to this and 50 mg ER of Quetiapine is ordered after risk versus benefit discussion takes place. Should this fail, lamotrigine can be trialed next. 11/28/2024 Bipolar affective disorder (ICD-10 - F31.9) Client struggling with emotional lability, depression, lack of sleep, lack of appetite. Wants to trial mood stabilizer and antidepressant. States does not want to trial mood stabilizer alone as she feels this will not work. States lithium worked great but hurt me into my bones and lamotrigine worked great but I did get some rashes with it I just didn't tell the provider at the time. Discussed a trial of Vraylar and mirtazapine combination after risk versus benefit of both reviewed. Client agreeable. Will f/u in one week to see if Vraylar needs to be adjusted up. Discussed IOP as option given level of distress client states she feels but client states she does not want to do an IOP at this time but would rather do weekly medication adjustments and get into therapy. Therapy referral sent. 12/06/2024 Bipolar affective disorder (ICD-10 - F31.9) Client with marked improvements in one week. She wishes to continue tx plan for next three weeks and then reassess if dosage increase is needed. Starts therapy tomorrow and states will call office for any needs. 12/06/2024 Borderline personality disorder (ICD-10 - F60.3) Client with marked improvements in one week. She wishes to continue tx plan for next three weeks and then reassess if dosage increase is needed. Starts therapy tomorrow and states will call office for any needs. 11/28/2024 Borderline personality disorder (ICD-10 - F60.3) Client struggling with emotional lability, depression, lack of sleep, lack of appetite. Wants to trial mood stabilizer and antidepressant. States does not want to trial mood stabilizer alone as she feels this will not work. States lithium worked great but hurt me into my bones and lamotrigine worked great but I did get some rashes with it I just didn't tell the provider at the time. Discussed a trial of Vraylar and mirtazapine combination after risk versus benefit of both reviewed. Client agreeable. Will f/u in one week to see if Vraylar needs to be adjusted up. Discussed IOP as option given level of distress client states she feels but client states she does not want to do an IOP at this time but would rather do weekly medication adjustments and get into therapy. Therapy referral sent. 08/22/2024 Other Discussed sleep hygiene and caffeine intake with encouragement to limit electronic devices an hour before bed and to limit caffeine after 3:00pm. Exercise benefits for mood and health discussed. Psychoeducation regarding psychiatric illness provided. Client was educated about risks and benefits of medication, alternatives to medication, off label uses of medication, suicidal ideation with SSRIs, self-administrat ion and compliance with medication along with how to safely store medication. Verbal informed consent obtained. Client agrees to return sooner if symptoms worsen or if suicidal or homicidal ideations occur. Client has the phone number to the 24-hour crisis line at [facility]. Questions addressed. Client verbalized understanding of all information and is agreeable to treatment plan. Client with prior dx of bipolar affect and borderline personality which appear to match screening done during evaluation. Client is interested in starting a medication that will make my appetite increase, my sleep better, improve my mood and my anxiety. She initially wanted to be put back on lamotrigine. Discussed that lamotrigine alone would likely not increase appetite/blood sugars the way she wants this targeted and for all the areas she is wanting to treat, it may be beneficial to trial extended release Seroquel to see if monotherapy can be used to achieve her goals. She is open to this and 50 mg ER of Quetiapine is ordered after risk versus benefit discussion takes place. Should this fail, lamotrigine can be trialed next. 11/28/2024 Other Discussed sleep hygiene and caffeine intake with encouragement to limit electronic devices an hour before bed and to limit caffeine after 3:00pm. Exercise benefits for mood and health discussed. Psychoeducation regarding psychiatric illness provided. Client was educated about risks and benefits of medication, alternatives to medication, off label uses of medication, suicidal ideation with SSRIs, self-administrat ion and compliance with medication along with how to safely store medication. Verbal informed consent obtained. Client agrees to return sooner if symptoms worsen or if suicidal or homicidal ideations occur. Client has the phone number to the 24-hour crisis line at [facility]. Questions addressed. Client verbalized understanding of all information and is agreeable to treatment plan. Client struggling with emotional lability, depression, lack of sleep, lack of appetite. Wants to trial mood stabilizer and antidepressant. States does not want to trial mood stabilizer alone as she feels this will not work. States lithium worked great but hurt me into my bones and lamotrigine worked great but I did get some rashes with it I just didn't tell the provider at the time. Discussed a trial of Vraylar and mirtazapine combination after risk versus benefit of both reviewed. Client agreeable. Will f/u in one week to see if Vraylar needs to be adjusted up. Discussed IOP as option given level of distress client states she feels but client states she does not want to do an IOP at this time but would rather do weekly medication adjustments and get into therapy. Therapy referral sent. 12/06/2024 Other Discussed sleep hygiene and caffeine intake with encouragement to limit electronic devices an hour before bed and to limit caffeine after 3:00pm. Exercise benefits for mood and health discussed. Psychoeducation regarding psychiatric illness provided. Client was educated about risks and benefits of medication, alternatives to medication, off label uses of medication, suicidal ideation with SSRIs, self-administrat ion and compliance with medication along with how to safely store medication. Verbal informed consent obtained. Client agrees to return sooner if symptoms worsen or if suicidal or homicidal ideations occur. Client has the phone number to the 24-hour crisis line at [facility]. Questions addressed. Client verbalized understanding of all information and is agreeable to treatment plan. Client with marked improvements in one week. She wishes to continue tx plan for next three weeks and then reassess if dosage increase is needed. Starts therapy tomorrow and states will call office for any needs. Plan Of Treatment Next Appt Details Provider Name:Sae major, 12/25/2024 10:20:00 AM, [address], [place], [address], Insurance Providers Payer Name Payer Address Payer Phone Subscriber Number Group Number Insured Name Patient Relationship to Insured Coverage Start Date Coverage End Date [employer] [address] [place] [address] [id number] Jessica Garibay Self - patient is the insured 5 [employer] ID [address] [place] [address] [id number] Jessica Garibay Self - patient is the insured 5 Medical (General) History Medical History History ICD Code Bipolar II disorder Bipolar II disorder F31.81 Hospitalization History Reason Date(Month/Year) -[facility] 2023
--- OUTSIDE RECORDS SUMMARY | 2024-12-13 13:30 | XMS_ITS | Clinical Summary ---
Author Organization [facility] Address [address] [facility] [address] [place] [address] Phone Care Team Providers Care Access Developer Name Role Phone Clemente Corcoran MD Unavailable Nasrin Chapa APRN, SCREEN ROOM OPERATOR Primary Care Provider + Michael Varela MD Unavailable [phone] Allergies No known active allergies Medications medroxyPROGEST ERone Acetate (DEPO-PROVERA) 150 MG/ML Suspension Prefilled Syringe INJECT 1 ML INTRAMUSCULARLY EVERY 3 MONTHS 04/03/20 24 Active Active Problems No known active problems Encounters Date Type Department Care Team Description 10/04/2024 1:45 PM CDT Office Visit [facility] [address] [facility] [address] [place] [address] Michael Varela MD Night sweats (Primary Dx) 10/04/2024 Travel from Last 3 Months Family History Medical History Relation Name Comments Autism Brother 1 No Known Problems Brother 2 No Known Problems Daughter Cancer Father Congestive Heart Failure Father Kidney Cancer Father Renal Failure Father Cancer Maternal Grandfather Hypertension Maternal Grandfather Lung Cancer Maternal Grandfather Bipolar Disorder Maternal Grandmother Dementia Maternal Grandmother Autoimmune Disease Mother Cancer Mother Ovarian Cancer Mother Cancer Paternal Grandfather Hypertension Paternal Grandfather Kidney Cancer Paternal Grandfather Parkinsonism Paternal Grandmother No Known Problems Sister No Known Problems Son Relation Name Status Comments Brother 1 Alive Brother 2 Alive Daughter Alive Father Alive Maternal Grandfather Maternal Grandmother Alive Mother Alive Paternal Grandfather Paternal Grandmother Sister Alive Son Alive Social History Tobacco Use Types Packs/Day Years Used Date Smoking Tobacco: Every Day Cigarettes 0.3 17 Started: 2005; Last attempted to quit: 2022 Smokeless Tobacco: Never Tobacco Cessation:Ready to Q uit: Not Asked; Counseling Given: Not Answered Alcohol Use Standard Drinks/Week Comments Not Currently 0 (1 standard drink = 0.6 oz pur e alcohol) Sexually Active Control Partners Comments Yes Male Comments No Sex and Gender Information Value Date Recorded Sex Assigned at Not on file Legal Sex Female 9:06 AM OUTSIDE BARREL LATHE OPERATOR Gender Identity Not on file Sexual Orientation Not on file Last Filed Vital Signs Vital Sign Reading Time Taken Comments Blood Pressure 126/84 10/04/2024 1:55 PM CDT Pulse 86 10/04/2024 1:55 PM CDT Temperature 36.8 C (98.2 F) 10/04/2024 1:55 PM CDT Respiratory Rate 18 10/04/2024 1:55 PM CDT Oxygen Saturation 99% 10/04/2024 1:55 PM CDT Inhaled Oxygen Concentration - - Weight 52.4 kg (115 lb 9.6 oz) 10/04/2024 1:55 P M CDT Height 170.2 cm (5' 7) 10/04/2024 1:55 PM CDT Body Mass Index 18.11 10/04/2024 1:55 PM CDT Plan of Treatment Health Maintenance Due Date Last Done Comments Pneumococcal Immunization Combined (1 of 2 - PCV) 2013 Pap Smear 2015 SARS-COV-2 Immunization ( season) 2024 04/14/2021, 03/24/2021 Cervical Cancer Screening (CCS) 2024 HPV/Cotest 2024 Respiratory Syncytial Virus (RSV) Immunization (Adult) (1 - 1-dose 75+ series) 2069 Hepatitis B Immunization Completed 995, 1994, 1994 DTaP/Tdap/Td Immunization Discontinued 2022, 11/24/2020, 07/29/2017, Additional history exists TdaP Immunization Completed 11/18/2022, , 07/29/2017, Additional history exists Hepatitis C Virus (HCV) Screening Completed 02/22/2024 Influenza Immunization Completed 03/27/2024 Meningococcal Immunization (ACWY) Aged Out No longer eligible based on patient's age to complete this topic Rotavirus Immunization Aged Out No lo nger eligible based on patient's age to complete this topic Insurance MEDICAID [place] Care Teams Access Developer Relationship Specialty Start Date End Date Nasrin Chapa, TECHNICAL DELIVERY MANAGER, SCREEN ROOM OPERATOR [address] [place] [address] PCP - General Primary Care 07/06/23 Clemente Corcoran MD [address] [address] Consulting Physician Colon and Rectal Surgery 07/06/23 Michael Varela MD [address] [place] [address] Consulting Physician Oncology 03/21/24
== END 2024-12-13 12:49 | disposition home or self-care (01) ==
LOC: ANHSURGERY 12:56
PROVIDERS: PCP Nurse Practitioner Family; Visit Provider Surgery Plastic and Reconstructive Surgery
DX: R94.31 Abnormal electrocardiogram [ECG] [EKG] (principal); I38 Endocarditis, valve unspecified
CPT/HCPCS: 93005

== ENCOUNTER 2024-12-18 01:22 | Day surgery (SDC) | payer OTHER, SELFPAY ==
--- NOTE | 2024-12-11 10:24 | SUR.PREOP ---
Report to the Outpatient Waiting Room, entrance under the green pavilion located off [facility], at time ___06____ on date ___12/18/24____. Planned Procedure Time: ____729____.? Time changes happen often and if your time is changed the preop area will call you the afternoon before. - You and your visitor will be asked to self-screen and do not enter if you have any COVID symptoms. Please call surgeon if you need to reschedule. - A mask is optional within the hospital at this time. Patients may have clear liquids (water, carbonated beverages, clear teas, apple juice) until 3 hours prior to surgery with a maximum of 20 ounces. - NO CLEAR LIQUIDS AFTER 0430 - No food from midnight until time of surgery and no smoking, or chewing tobacco (or any form of nicotine). No chewing gum, candy or mints. - Infants may have breast milk until 4 hours before surgery, infant formula 6 hours prior to surgery. - Children will be allowed to drink immediately following surgery.? If applicable, please bring a bottle or sippy cup to assist with drinking. Juice, water, soda, and popsicles are readily available.? For infants on formula, please bring formula the day of surgery.? Pacifiers are allowed. Take only the following medications with a SIP of water on the morning of surgery: VRAYLAR DO NOT STOP ANY OF YOUR OTHER PRESCRIPTION MEDICATIONS PRIOR TO SURGERY EXCEPT THE FOLLOWING Hold all vitamins and supplements for 3 days per anesthesiologist. Medications to discontinue per physician N/A Date to take last dose Please no make-up, nail hungarian, hairspray, perfume, deodorant, or body powder the day of surgery.? No jewelry (including any body piercings) or valuables the day of surgery, leave them at home.? Please take a shower or bath the night before, or the morning of, surgery with an antibacterial soap.? Wear comfortable, loose fitting clothing.? Children are encouraged to wear pajamas. - Jewelry must be removed prior to entering the operating room.? Rings and piercings that are not removed may be cut off. - The hospital will not accept responsibility for valuables.? - Please leave all valuables, including medications, at home the day of surgery. If you are going home after surgery, a licensed school bus driver/mechanic must drive you home.? - NO public transportation without another adult if you receive anesthesia. - We recommend that an adult stay with you for 24 hours following discharge. - We also recommend that you do not drive, make important decision, drink alcoholic beverages, or take any drugs that were not prescribed by your health care provider for at least 24 hours after your discharge time. For Pediatric surgeries, we recommend two adults accompany the child home. Follow any additional instructions given to you from your surgeon. Telephone instructions given to ORI MCKNIGHT and asked if any additional questions and then verbalized understanding. Patient advised to call surgeon office or pre surgery nurse liaison [phone] if any additional questions.
[2024-12-11 10:36] VITALS: BMI 18.3
--- NOTE | 2024-12-11 10:50 | SUR.PREOP ---
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 DR KEMP IN [facility] IS HER PHYSICIAN THAT FOLLOWS HER WITH THIS CONDITION. STATES THIS CONDITION WILL NOT HAVE ANY PROBLEMS WITH THIS SURGERY (BILAT BREAST AUG). PROCEED INDICATED.
[2024-12-18] VITALS (9 sets, daily range): BP systolic 110–135; BP diastolic 74–84; PULSE 72–123; RESP 16–22; TEMP 36.4–37.3; O2SAT 95–100
--- OUTSIDE RECORDS SUMMARY | 2024-12-18 01:26 | XMS_ITS | Clinical Summary ---
Author Organization [facility] Address [address] [facility] [address] [place] [address] Phone Care Team Providers Care Quality Process Auditor Name Role Phone Clemente Corcoran MD Unavailable Nasrin Chapa APRN, MAINTENANCE AND REPAIR WORKER Primary Care Provider + Michael Varela MD Unavailable [phone] Allergies No known active allergies Medications medroxyPROGEST ERone Acetate (DEPO-PROVERA) 150 MG/ML Suspension Prefilled Syringe INJECT 1 ML INTRAMUSCULARLY EVERY 3 MONTHS 04/03/20 24 Active Active Problems No known active problems Encounters Date Type Department Care Team Description 10/04/2024 1:45 PM CDT Office Visit [facility] [address] [address] [facility] [address] [place] [address] Michael Varela MD Night sweats [...] on file Legal Sex Female 9: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 TECHNOLOGY MANAGER Gender Identity Not on file Sexual Orientation [...] Screening Completed 02/22/2024 Influenza Immunization Completed 03/27/2024 Human Papillomavirus (HPV) Immunization Aged Out No longer eligible based on patient's age to complete this topic Meningococcal Immunization (ACWY) Aged Out No longer eligible based on patient's age to complete this topic Rotavirus Immunization Aged Out No lo nger eligible based on patient's age to complete this topic Insurance [place]ID [place] Care Teams Quality Process Auditor Relationship Specialty Start Date End Date Nasrin Chapa, DIRECTOR OF WOMEN'S SERVICES, MAINTENANCE AND REPAIR WORKER [address] [place] [address] PCP - General Primary Care 07/06/23 Clemente Corcoran MD [address] [address] Consulting Physician Colon and Rectal Surgery 07/06/23 Michael Varela MD [address] [facility] [place] [address] Consulting Physician Oncology 03/21/24
--- OUTSIDE RECORDS SUMMARY | 2024-12-18 01:26 | XMS_ITS | Clinical Summary ---
Author Organization [facility] [address] Address [address] [place] [address] Care Team Providers Care Wood Mechanist Name Role Phone Monika Seymour NP Primary Care Provider [phone] Allergies No known active allergies Medications etonogestreL (NEXPLANON) 68 mg implantIndication s: Contraception Active buPROPion SR (WELLBUTRIN SR) 150 mg 12 hr tablet bupropion HCl SR 150 mg tablet,12 hr sustained-relea se Active lamoTRIgine (LaMICtal) 25 mg tablet lamotrigine 25 mg tablet Active Active Problems Problem Noted Date Diagnosed Date Lightheadedness 10/07/2020 Encounters Date Type Department Care Team Description 10/31/2024 Telephone [facility] [address] [facility] [address] [place] [address] Nomi Jacobs MD from Last [...] on file Legal Sex Female 6:48 AM VENEREAL DISEASE CONTROL HEAD Gender Identity Not on file Sexual Orientation Not on file Obstetrics History Last Filed Vital Signs Vital Sign Reading Time Taken Comments Blood Pressure 104/66 09/03/2021 10:01 AM VENEREAL DISEASE CONTROL HEAD Pulse 70 09/03/2021 10:01 AM VENEREAL DISEASE CONTROL HEAD Temperature - - Respiratory Rate - - Oxygen Saturation 98% 09/03/2021 10:01 AM VENEREAL DISEASE CONTROL HEAD Inhaled Oxygen Concentration - - Weight 55.8 kg (123 lb) 09/03/2021 10:01 AM VENEREAL DISEASE CONTROL HEAD Height 170.2 cm (5' 7) 09/03/2021 10:01 AM VENEREAL DISEASE CONTROL HEAD Body Mass Index 19.26 09/03/2021 10:01 AM VENEREAL DISEASE CONTROL HEAD Plan of Treatment Not on file Insurance [facility] Care Teams Wood Mechanist Relationship Specialty Start Date End Date Monika Seymour NP [address] [place] [id number] PCP - General Family Practice 10/07/20
--- OUTSIDE RECORDS SUMMARY | 2024-12-18 01:26 | XMS_ITS | Referral Summary ---
Author Organization [facility] [address] [facility] [address] Address [address] [place] [address] Care Team Providers Care Cathead Worker Name Role Phone Monika Seymour NP Primary Care Provider [phone] Encounters Date Type Department Care Team Description 10/31/2024 Telephone [facility] [address] [place] [address] Nomi Jacobs MD from Last [...] on file Legal Sex Female 6:48 AM AUTOMATION CONTROL TECHNICIAN Gender Identity Not on file Sexual Orientation Not on file Last Filed Vital Signs Vital Sign Reading Time Taken Comments Blood Pressure 104/66 09/03/2021 10:01 AM AUTOMATION CONTROL TECHNICIAN Pulse 70 09/03/2021 10:01 AM AUTOMATION CONTROL TECHNICIAN Temperature - - Respiratory Rate - - Oxygen Saturation 98% 09/03/2021 10:01 AM AUTOMATION CONTROL TECHNICIAN Inhaled Oxygen Concentration - - Weight 55.8 kg (123 lb) 09/03/2021 10:01 AM AUTOMATION CONTROL TECHNICIAN Height 170.2 cm (5' 7) 09/03/2021 10:01 AM AUTOMATION CONTROL TECHNICIAN Body Mass Index 19.26 09/03/2021 10:01 AM AUTOMATION CONTROL TECHNICIAN Plan of Treatment Not on file Insurance [facility] Care Teams Cathead Worker Relationship Specialty Start Date End Date Monika Seymour NP [address] [place] [address] [place] [address] PCP - General Family Practice 10/07/20
--- OUTSIDE RECORDS SUMMARY | 2024-12-18 01:26 | XMS_ITS | Data Portability ---
Author Organization [facility] Address [address] [place] [address] Care Team Providers Care Bakery Supervisor Name Role Phone NEELAM SANCHEZ Primary Care Provider Assessment No assessment recorded. Plan of Treatment Reminders Order Date Submit Date Provider Last Modified By Organization Details Last Modified Time Details Appointments None recorded. Lab test, urine 2024 025 [email or web address] [address], [address], [place], [address], 18:13:19 Referral None recorded. Procedures None recorded. Surgeries None recorded. Imaging US, pelvis 2023 024 [email or web address] [address], [address], [place], [address], 16:40:21 US, transvagina l 2023 024 [email or web address] [address], [address], [place], [address], 16:41:03 Medication Orders [employer] Equipment Mechanic a 150 mg/mL intramuscul ar syringe 2024 025 [email or web address] 1 Not available 5 21:03:25 [employer] Conditioning Equipment Mechanic a 150 mg/mL intramuscul ar syringe 2023 024 [email or web address] 1 Not available 17:15:56 [employer] Conditioning Equipment Mechanic a 150 mg/mL intramuscul ar syringe 2023 024 [email or web address] 1 Not available 17:13:08 fluconazole 150 mg tablet 2023 [facility]/Pharmacy #[id number], [address] [place] [address], [address], 17:13:06 nystatin-tr iamcinolone 100,000 unit/gram-0 .1 % topical ointment 2023 [facility]/Pharmacy #[id number], [address] [facility], [place], [address], 17:13:14 Patient TargetsNo targets recorded. Patient InstructionsNo instructions recorded. Reason for Referral None Reported. Results Created Date Observation Date Name Description Value Unit Range Abnormal Flag Note LastModifiedBy Organization Detail LastModifiedTime 11/03/19 24 11/03/2023 CBC W/DIF F WBC 8.0 10'3/ uL 3.5-10 .5 Not Available [facility] (Lab) [address], [place], [address], 11/04/2023 09:37:29 11/03/19 24 11/03/2023 CBC W/DIF F RBC 4.93 10'6/ uL (based on docume nted legal sex) 3.80-5 .20 Not Available [facility] (Lab) [address] [place], [address], 11/04/2023 09:37:29 11/03/19 24 11/03/2023 CBC W/DIF F HGB 13.6 g/dL (based on docume nted legal sex) 11.6-1 5.4 Not Available [facility] (Lab) [address], [place], [address], 11/04/2023 09:37:29 11/03/19 24 11/03/2023 CBC W/DIF F HCT 43.5 % (based on docume nted legal sex) 34.0-4 5.0 Not Available [facility] (Lab) [address], [place], [address], 11/04/2023 09:37:29 11/03/19 24 11/03/2023 CBC W/DIF F MCV 88.2 fL 80.0-9 9.0 Not Available [facility] (Lab) [address], [place], [address], 11/04/2023 09:37:29 11/03/19 24 11/03/2023 CBC W/DIF F MCH 27.6 pg 27.0-3 4.0 Not Available [facility] (Lab) [address], [place], [address], 11/04/2023 09:37:29 11/03/19 24 11/03/2023 CBC W/DIF F MCHC 31.3 g/dL 32.0-3 5.5 low Not Available [facility] (Lab) [address], [place], [address], 11/04/2023 09:37:29 11/03/19 24 11/03/2023 CBC W/DIF F RDW 13.1 % 11.0-1 5.0 Not Available [facility] (Lab) [address], [place], [address], 11/04/2023 09:37:29 11/03/19 24 11/03/2023 CBC W/DIF F plt 423 10'3/ uL 150-40 0 high Not Available [facility] (Lab) [address], [place], [address], 11/04/2023 09:37:29 11/03/19 24 11/03/2023 CBC W/DIF F MPV 9.5 fL 8.8-12 .1 Not Available [facility] (Lab) [address] [place], [address], 11/04/2023 09:37:29 11/03/19 24 11/03/2023 CBC W/DIF F NRBC's 0.0 % 0.0 Not Available [facility] (Lab) [address], [place], [address], 11/04/2023 09:37:29 11/03/19 24 11/03/2023 CBC W/DIF F absolute NRBCs 0.0 10'3/ uL no refere nce range establ ished Not Available [facility] (Lab) [address], [place], [address], 11/04/2023 09:37:29 11/03/19 24 11/03/2023 CBC W/DIF F neutrophils 69.0 % 34.0-7 3.0 Not Available [facility] (Lab) [address], [place], [address], 11/04/2023 09:37:29 11/03/19 24 11/03/2023 CBC W/DIF F lymphocytes 25.4 % 15.0-5 0.0 Not Available [facility] (Lab) [address], [place], [address], 11/04/2023 09:37:29 11/03/19 24 11/03/2023 CBC W/DIF F monocytes 3.4 % 1.0-15 .0 Not Available [facility] (Lab) [address], [place], [address], 11/04/2023 09:37:29 11/03/19 24 11/03/2023 CBC W/DIF F eosinophils 1.4 % 0.0-8. 0 Not Available [facility] (Lab) [address], [place], [address], 11/04/2023 09:37:29 11/03/19 24 11/03/2023 CBC W/DIF F basophils 0.5 % 0.0-2. 0 Not Available [facility] (Lab) [address] [place], [address], 11/04/2023 09:37:29 11/03/19 24 11/03/2023 CBC W/DIF F immature granulocytes 0.3 % no define d refere nce range Not Available [facility] (Lab) [address] [facility], [place], [address], 11/04/2023 09:37:29 11/03/19 24 11/03/2023 CBC W/DIF F absolute neutrophils 5.5 10'3/ uL 1.5-8. 0 Not Available [facility] (Lab) [address] [facility], [place], [address], 11/04/2023 09:37:29 11/03/19 24 11/03/2023 CBC W/DIF F absolute lymphocytes 2.0 10'3/ uL 1.0-4. 0 Not Available [facility] (Lab) [address] [facility], [place], [address], 11/04/2023 09:37:29 11/03/19 24 11/03/2023 CBC W/DIF F absolute monocytes 0.3 10'3/ uL 0.2-1. 0 Not Available [facility] (Lab) [address] [facility], [place], [address], 11/04/2023 09:37:29 11/03/19 24 11/03/2023 CBC W/DIF F absolute eosinophils 0.1 10'3/ uL 0.0-0. 6 Not Available [facility] (Lab) [address] [place], [address], 11/04/2023 09:37:29 11/03/19 24 11/03/2023 CBC W/DIF F absolute basophils 0.0 10'3/ uL 0.0-0. 3 Not Available [facility] (Lab) [address] [place], [address], 11/04/2023 09:37:29 11/03/19 24 11/03/2023 CBC W/DIF F absolute immature granulocytes 0.0 10'3/ uL 0.00-0 .10 2023 7:08 AM: P indic ates parti al resul ts on a panel have been relea sed. Addit ional resul ts will follo w. 2023 7:08 AM: This resul t has been final verif ied. No addit ional or fletcher ed resul ts are expec meaghan. Not Available [facility] (Lab) [address] [facility], [place], [address], 11/04/2023 09:37:29 11/03/19 24 11/03/2023 TSH, REFLE X FREE T4 TSH 1.03 uIU/m L 0.30-5 .33 Not Available [facility] (Lab) [address] [facility], [place], [address], 11/04/2023 09:37:29 11/03/19 24 11/03/2023 VITAM IN D, 25-OH (TOTA L D2/D3 ) vitamin D, 25-hydroxy, total 30.8 NG/mL 30.0-1 00.0 Sugge stive of Defic iency : <20 ng/mL Sugge stive of Insuf ficie ncy: 20-29 ng/mL Sugge stive of Suffi cienc y: 30-10 0 ng/mL Sugge stive of Toxic ity: >150 ng/mL Not Available [facility] (Lab) [address] [place], [address], 11/04/2023 09:37:30 11/03/19 24 11/03/2023 HEMOG LOBIN A1C hemoglobin A1C 5.1 % 0-5.6 The Ameri can Diabe es Assoc iatio n recom mends that a prima ry goal of thera py humberto d be a HBA1C of < 7% and that physi cians scotul d reeva luate the treat ment regim en in patie nts with HBA1C value s consi stent ly > 8%. <5.7% Catalina l 5.7 - 6.4% Incre ased risk for diabe es >=6.5 % Diagn ostic of diabe es <7.0% Goal of thera py >8.0% Actio n sugge sted Not Available [facility] (Lab) [address] [facility], [place], [address], 11/04/2023 09:37:30 11/03/19 24 11/03/2023 IMAGE GUIDE D PAP, REFLE X HPV IF ASCUS ONLY image guided Pap, reflex HPV ASCUS only SEE RESULT S BELOW CASE REPOR T: Cytol ogy Gynec ologi mei Repor t Case: [id number] Autho rod helm Provi dyllan: Nasrin Chapa, MALINI Colle cted: 11/02 1140 Order ing Locat ion: [place] Path[facility] log[facility] Recei taniya: 11/03 0810 First Scree n: Kelley [place] , CT Rescr een: Robby Alarcon, CT Speci men: Scree christopher Pap - Image d, Cervi x STATE MENT OF ADEQU ACY: Satis facto ry for evalu ation Trans forma tion zone compo nent prese nt FINAL DIAGN OSIS: Negat belkys for Intra epith elial Lesio n or Kelsea bird (NIL) . Shift in prabha sugge stive of bacte rial vagin osis. Elect елена hill [place] d by Robby Alarcon, CT on 024 at 3:45 PM ----- ----- ----- ----- ----- ----- ----- ----- ----- ----- ----- ----- ----- ----- ----- ----- ----- ---- COMME NT: This speci men was revie wed by a Cytot echno logis t and/o r Patho logis t (as indic ated in this repor t) after evalu ation using the Thinp rep Imagi ng Syste m. CLINI MEI INFOR MATIO N: Menst rual Statu s: LMP (if appli cable ): Clini mei Histo ry/Pr eviou s Pap: High Risk Type of Neopl sourav (if appli cable ): Signi fican t Clini mei Findi ngs: Other Histo ry: Hormo anshul (if appli cable ): PAP EDUCA AIYANA L NOTE: The Pap Test is a scree christopher test with an inher ent false negat belkys rate. Liqui d-bas ed sampl ing may decre ase, but will not elimi layne, false negat belkys resul ts. A negat belkys resul t does not precl ude the prese nce and/o r devel opmen t of disea se, since the prese nce of abnor mal cells in the sampl e depen ds on the locat ion of the lesio n and sampl ing techn ique. Arabella nued regul ar scree christopher is the best metho d of cance r preve ntion . If repor meaghan cytol ogic findi ng do not corre late with physi mei and/o r histo rical findi ngs, furth er inves tigat ion is recom joseph d, as clini venkatesh warra nted. Not Available [facility] (Lab) [address] [facility], [place], [address], 11/10/2023 16:49:03 11/03/19 24 11/03/2023 TRICH OMONA S VAGIN RASHMI (RRNA ) trichomonas vaginalis ribosomal RNA (rrna) Negati ve negati ve Not Available [facility] (Lab) [address] [place], [address], 11/10/2023 16:49:04 11/03/19 24 11/03/2023 CT/GC (LUIZ) , THINP REP VIAL chlamydia trachomatis, PCR Negati ve negati ve Not Available [facility] (Lab) [address] [place], [address], 11/10/2023 16:49:05 11/03/19 24 11/03/2023 CT/GC (LUIZ) , THINP REP VIAL neisseria gonorrhoeae, PCR Negati ve negati ve Not Available [facility] (Lab) [address] [place], [address], 11/10/2023 16:49:05 11/03/19 24 11/03/2023 pregn dani test, urine HCG negati ve Not Available [place] [address], [place], [address], 11/03/2023 12:19:31 04/23/2004/23/2024 US, pelvi s No observ ation record ed. [email or web address] [place] [address], [place], [address], 04/23/2024 17:20:37 04/23/2004/23/2024 US, trans vagin al No observ ation record ed. [email or web address] [place] [address], [place], [address], 04/23/2024 17:20:47 04/23/2004/23/2024 US, pelvi s No observ ation record ed. [email or web address] [address], [place], [address], 04/23/2024 20:12:07 Result Notes None recorded. Problems Name Problem SNOMED Code Status Onset Date Resolution Date Notes Provider Name and Address Organization Details Recorded Time Pregnanc y 76270779 Completed 201912/18/2020 Kathie Castanontieh l null, [facility] 17:05:07 Anemia 335515929 Completed Kathie Bohkacinstieh l null, [facility] 17:05:02 Herpes simplex 05756905 Completed Valtrex 35wks sent 11/11 Kathieginny Youngnstieh l null, [facility] 17:05:02 Dysplasi a of cervix 27545217 Completed Kathie Bohkacinstieh l null, [facility] 17:05:02 Javid gibbs user 108200516 Completed Kathie hoover [facility], [facility] 1 17:05:02 Palpitat ions 98905589 Completed cardiolo gy cleared until after delivery Kathie hoover null, [facility] 1 17:05:02 Dilatati on of renal pelvis 464346695 Completed 202009/10/2020 bilatera l - RESOLVED Kathie hoover [facility] 1 17:05:02 Surveill ance of subcutan eous contrace ptive implant Completed 202011/24/2021 Luzdavid Ramirez [facility], [facility] 2 16:08:07 Genital herpes simplex 06310311 Active 2022 Andreia Cerda MD [address], [place], [address], [facility] 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 3 19:14:01 History of loop electros urgical excision procedur e 3963920707 9102 Active 2022 Andreia Cerda MD [address], [place], [address], [facility] 3 18:23:56 Problem Notes None recorded. Procedures Surgical History Date Name Laterality Status Provider Name and Address Organization Details Recorded Time 11/03/19 24 Date of Last Pap Smear completed Sandra Shah [facility] 04/23/2024 17:03:35 01/27/20 23 LOOP ELECTRODE EXCISION PROCEDURE, SURGICAL (LEEP) (SURG) completed Sally Ashraf [facility] 01/27/2023 10:10:47 01/08/20 23 Colposcopy completed Andreia Cerda MD [address], [place], [address], [facility] 01/07/2023 12:16:49 01/08/20 23 Colposcopy completed Sandra Shah [facility] 04/23/2024 17:07:39 12/17/19 22 Wart Topical Procedure completed Danette Duggan [facility] [address], [place], [address], [facility] 12/16/2021 16:58:42 12/09/19 22 Control Implant Removal completed Danette Duggan [facility] [address], [place], [address], [facility] 12/08/2021 16:28:12 07/29/19 22 Colposcopy completed Andreia Cerda MD [address], [place], [address], [facility] 07/29/2021 14:57:40 02/29/20 21 Control Implant Insertion completed Neftali Bertrand MD [address], [place], [address], [facility] 02/28/2021 10:44:50 07/11/19 18 removal of mole of skin by excision completed Sandra Shah [facility] 04/23/2024 17:08:33 07/11/19 17 Colposcopy completed Sandra Shah [facility] 06/06/2023 19:05:09 03/13/20 16 Dilation and Curettage completed Sandra Shah [facility] 04/23/2024 17:07:58 07/11/19 16 Colposcopy completed [facility] 06/06/2023 19:05:06 07/11/19 13 extraction of wisdom tooth completed [facility] 04/23/2024 17:08:15 10/30/19 04 excision of lesion of skin completed [facility] 04/23/2024 17:09:17 Imaging Results None recorded. Procedure Notes None recorded. Medical Equipment None Reported. Allergies No known drug allergies Medications Name Sig Start Date Stop Date Status Note LastModified by Organization Details LastModified Time amoxicilli n 500 mg capsule TAKE 1 CAPSULE BY MOUTH TWICE A DAY FOR 10 DAYS 11/02 completed Not Available Not Available Not Available bupropion HCl SR 150 mg tablet,12 hr sustained- release TAKE 1 TABLET BY MOUTH EVERY DAY DIRECTED 11/24 completed Not Available Not Available Not Available prednisone 10 mg tablet TAKE 2 TABLETS BY MOUTH TWICE A DAY WITH FOOD UNTIL FINISHED 06/06 completed Not Available Not Available Not Available lamotrigin e 200 mg tablet TAKE 1 TABLET BY MOUTH EVERY DAY 06/06 completed Not Available Not Available Not Available trazodone 50 mg tablet TAKE 1-2 TABLETS BY MOUTH EVERY EVENING NEEDED FOR SLEEP 11/02 completed Not Available Not Available Not Available fluconazol e 150 mg tablet take 1 tablet by mouth now, repeat in 72 hours if needed 04/23 completed Not Available Not Available Not Available ondansetro n HCl 4 mg tablet TAKE 1 TABLET BY MOUTH EVERY 8 HOURS NEEDED FOR NAUSEA active Not Available Not Available No t Available hydroxyzin e pamoate 50 mg capsule TAKE 1 CAPSULE BY MOUTH 3 TIMES DAILY NEEDED FOR ANXIETY 06/06 completed Not Available Not Available Not Available lithium carbonate ER 300 mg tablet,ext ended release TAKE 2 TABLETS BY MOUTH TWICE A DAY 06/06 completed Not Available Not Available Not Available metronidaz ole 500 mg tablet TAKE 1 TABLET BY MOUTH EVERY 12 HOURS FOR 7 DAYS 11/23 completed Not Available Not Available Not Available valacyclov ir 500 mg tablet TAKE 1 TABLET BY MOUTH TWICE A DAY active Not Available Not Available No t Available sulfametho xazole 800 mg-trimeth oprim 160 mg tablet TAKE 1 TABLET BY MOUTH TWICE A DAY FOR 5 DAYS 12/08 completed Not Available Not Available Not Available bupropion HCl SR 100 mg tablet,12 hr sustained- release TAKE 1 TABLET BY MOUTH EVERY DAY 11/02 completed Not Available Not Available Not Available lamotrigin e 25 mg tablet TAKE 1 TAB EVERY DAY FOR 2 WEEKS THEN INCREASE 2 TABLETS EVERY MORNING 06/06 completed Not Available Not Available Not Available ketorolac 10 mg tablet PLEASE SEE ATTACHED FOR DETAILED DIRECTIO NS active Not Available Not Available No t Available nystatin-t riamcinolo ne 100,000 unit/gram- 0.1 % topical ointment APPLY TO THE AFFECTED AREA(S) BY TOPICAL ROUTE 2 TIMES PER DAY x 5-7 days prn 04/23 completed Not Available Not Available Not Available oxycodone- acetaminop hen 5 mg-325 mg tablet TAKE 1 TABLET EVERY 6 HOURS NEEDED FOR PAIN 06/30 completed Not Available Not Available Not Available hydrocorti sone 2.5 % topical cream with perineal applicator APPLY A THIN LAYER TO THE AFFECTED AREA(S) BY TOPICAL ROUTE 2-4 TIMES DAILY NEEDED 12/02 completed Not Available Not Available Not Available famotidine 20 mg tablet TAKE 1 TABLET BY MOUTH TWICE A DAY active Not Available Not Available No t Available phenazopyr idine 100 mg tablet TAKE 1 TABLET BY MOUTH 3 TIMES DAILY NEEDED FOR PAIN. 12/08 completed Not Available Not Available Not Available omeprazole 20 mg capsule,de layed release 12/02 completed Not Available Not Available Not Available Pain Relief Regular Strength 325 mg tablet TAKE 2 TABLETS (650 MG TOTAL) BY MOUTH EVERY 6 (SIX) HOURS NEEDED FOR PAIN. 06/30 completed Not Available Not Available Not Available mupirocin 2 % topical ointment APPLY TO AFFECTED AREA 3 TIMES A DAY FOR 7 DAYS 02/28 completed Not Available Not Available Not Available ibuprofen 600 mg tablet TAKE 1 TABLET BY MOUTH EVERY 6 HOURS NEEDED FOR PAIN 06/30 completed Not Available Not Available Not Available albuterol sulfate HFA 90 mcg/actuat ion aerosol inhaler TAKE 2 PUFFS BY MOUTH EVERY 6 HOURS NEEDED FOR WHEEZE OR SHORTNES S OF BREATH 04/25 /2024 completed Not Available Not Available Not Available sertraline 50 mg tablet TAKE 1 TABLET BY MOUTH EVERY DAY 05/06 completed heart racing Not Available Not Available Not Available medroxypro gesterone 150 mg/mL intramuscu lar suspension INJECT 1 ML INTRAMUS CULARLY EVERY 3 MONTHS 04/23 completed Not Available Not Available Not Available lamotrigin e 100 mg tablet PLEASE SEE ATTACHED FOR DETAILED DIRECTIO NS 11/02 completed Not Available Not Available Not Available amoxicilli n 875 mg-potassi um clavulanat e 125 mg tablet TAKE 1 TABLET BY MOUTH TWICE A DAY WITH FOOD UNTIL FINISHED -WAIT 48-72 HOURS BEFORE STARTING 10/22 completed Not Available Not Available Not Available hydroxyzin e pamoate 25 mg capsule TAKE 1 CAPSULE BY MOUTH TWICE DAILY NEEDED FOR ANXIETY 02/02 completed Not Available Not Available Not Available medroxypro gesterone 150 mg/mL intramuscu lar syringe INJECT 1 ML INTRAMUS CULARLY EVERY 3 MONTHS 2024 active Not Available Not Available Not Avai lable aripiprazo le 10 mg tablet TAKE 1 TABLET BY MOUTH EVERY DAY IN THE EVENING 06/06 completed Not Available Not Available Not Available aripiprazo le 5 mg tablet TAKE 1/2 TAB BY MOUTH EVERY EVENING FOR 6 DAYS,THE N INCREASE TO 1 TAB EVERY EVENING 06/06 completed Not Available Not Available Not Available bupropion HCl XL 300 mg 24 hr tablet, extended release TAKE 1 TABLET BY MOUTH EVERY DAY 06/06 completed Not Available Not Available Not Available bupropion HCl XL 150 mg 24 hr tablet, extended release TAKE 1 TABLET BY MOUTH EVERY DAY 02/02 completed Not Available Not Available Not Available quetiapine ER 50 mg tablet,ext ended release 24 hr TAKE 1 TABLET BY MOUTH EVERY DAY IN THE EVENING 30 DAYS active Not Available Not Available No t Available Nexplanon 68 mg subdermal implant Inject by subcutan eous route. 12/08 completed Not Available Not Available Not Available Xulane 150 mcg-35 mcg/24 hr transderma l patch APPLY 1 PATCH TO SKIN ONCE WEEKLY FOR 3 WEEKS 06/30 completed Not Available Not Available Not Available Tobias s Complete chewable tablet Take by oral route. 02/17 completed Not Available Not Available Not Available bupropion HCl 150 mg tablet,12 hr sustained- release(sm oking deterrent) 1 TABLET DIRECTED DAILY 11/24 completed Not Available Not Available Not Available Vitals Date Recorded Body height Body mass index (BMI) Body weight Systolic blood pressure Diastolic blood pressure Provider Name and Address Organization Details Last Updated DateTime 07/25/2024 170.18 cm 17.7 kg/m2 19934.94 g 118 mm[Hg] 74 mm[Hg] Melissa Kaiser [facility] 5 18:11:01 Date Recorded Body height Body mass index (BMI) Body weight Systolic blood pressure Diastolic blood pressure Provider Name and Address Organization Details Last Updated DateTime 11/24/2023 170.18 cm 17.7 kg/m2 54934.94 g 107 mm[Hg] 72 mm[Hg] Ella [facility]wood [facility] 4 10:22:31 Date Recorded Body height Provider Name an d Address Organization Details Last Updated DateTime 01/27/2024 170.18 cm Ella [facility] 01/27/2024 10:22:55 Date Recorded Body height Body mass index (BMI) Body weight Systolic blood pressure Diastolic blood pressure Provider Name and Address Organization Details Last Updated DateTime 04/23/2024 170.18 cm 17.7 kg/m2 75556.94 g 111 mm[Hg] 78 mm[Hg] Sandra Shah [facility] 4 17:12:55 Social History Question Answer Notes LastModified by Organizat ion Details LastModified Time Tobacco Smoking Status Former Smoker [facility] 07/30/2020 16:10:59 How Many Years Have You Consumed Alcohol? 11 Information not available 07/30/2020 Are You Blind Or Do You Have Difficulty Seeing? No [email or web address] Information n ot available 11/21/2020 What Is Your Level Of Caffeine Consumption? Moderate Information not available 07/30/2020 In The 14 Days Before Symptom Onset, Have You Had Close Contact With A Laboratory-confirm ed COVID-19 While That Case Was Ill? No [email or web address] Information n ot available 11/21/2020 In The 14 Days Before Symptom Onset, Have You Had Close Contact With A Person Who Is Under Investigation For COVID-19 While That Person Was Ill? No Information not available 11/21/2020 Have You Been To An Area Known To Be High Risk For COVID-19? No [email or web address] Information not available 11/21/2020 Are You Deaf Or Do You Have Serious Difficulty Hearing? No [email or web address] Information not available 11/21/2020 What Type Of Diet Are You Following? REGULAR Information n ot available 11/24/2021 How Many Days Of Moderate To Strenuous Exercise, Like A Brisk Walk, Did You Do In The Last 7 Days? 0 Information not available 07/30/2020 What Is Your Current Pack Years? 10-19packyear s Information not available 07/30/2020 Have You Ever Been Counseled For Unhealthy Alcohol Use? No Information not available 07/30/2020 Do You Use Your Seat Belt Or Car Seat Routinely? Yes [email or web address] Information not available 11/21/2020 Do You Have Smoke And Carbon Monoxide Detectors In Your Home? Yes [email or web address] Information not available 11/21/2020 At What Age Did You Start Smoking Tobacco? 14 Information not available 07/30/2020 How Much Tobacco Do You Smoke? 1 PPW Information not available 06/30/2020 Do You Use Sunscreen Routinely? Yes [email or web address] Information not available 11/21/2020 Has Tobacco Cessation Counseling Been Provided? No Information not available 07/30/2020 How Many Years Have You Smoked Tobacco? 12 Information not available 07/30/2020 Do You Have Difficulty Walking Or Climbing Stairs? No Information not available 11/24/2021 How Many Days In The Past Year Have You Consumed 4 Or More Drinks? 0 Information not available 07/30/2020 How Many Years Have You Used E-cigarettes Or Vape? 1 Information not available 07/30/2020 Sex: Unknown Functional Status Question Answer Note LastModified by Organizat ion Details LastModified Time Do you use any illicit or recreational drugs? No Information not available 07/30/2020 Do you or have you ever used any other forms of tobacco or nicotine? Yes Information not available 07/30/2020 What is your level of alcohol consumption? Occasional Information not available 07/30/2020 Do you or have you ever used smokeless tobacco? Never used smokeless tobacco Information not available 07/30/2020 Are you able to walk? YESWOREST [email or web address] Information not available 11/21/2020 Are you able to care for yourself? Yes Information not available 11/24/2021 Do you have difficulty dressing or bathing? No Information not available 11/24/2021 Do you or have you ever used e-cigarettes or vape? Former user of electronic cigarettes Information not available 07/30/2020 What is your exercise level? None Information not available 07/30/2020 Mental Status Question Answer Note LastModified by Organization D etails LastModified Time Do you feel stressed (tense, restless, nervous, or anxious, or unable to sleep at night)? [id number] Information not available 11/21/2020 Family History Relationship Description Onset Age of this Age Resolved Age Notes LastModified by Organization Details LastModified Time Father Heart disease Not available 2019 16:55:12 Father Hyperlipidem ia Not available 2019 16:55:37 Father Hypertensive disorder Not available 2019 16:55:48 Father Malignant tumor of kidney Not available 2019 16:58:03 Paternal Grandmother Diabetes mellitus Not available 2019 16:55:24 Mother Hypertensive disorder Not available 2019 16:55:48 Mother Malignant neoplasm of ovary Not available 2019 16:56:10 Mother Cyst of ovary Not available 2019 16:56:24 Mother Mental disorder Not available 2019 16:57:35 Maternal Grandmother Mental disorder Not available 2019 16:57:35 Sister Mental disorder [email or web address] Not available 2019 16:57:35 Brother Mental disorder Not available 2019 16:57:35 Paternal Aunt Malignant neoplasm of skin Not available 2019 16:58:16 Medical History Condition Response Other N Blood Transfusion N Dermatologic Disorders N Gestational Diabetes N Anxiety Disorder Y Autoimmune disease N Arthritis N Polyps N Infertility N Acid Reflux (GERD) Y Cancer Y Varicosities N Stroke N Neurologic/Epilepsy Y Fibromyalgia N Headaches N Kidney Disease N Heart Problems Y Kidney or Bladder Problems N Eating Disorder N Art (IVF or FET) N Hepatitis/Liver Disease N No Past Medical History N Urinary Tract Infection N Asthma N Trauma/Violence N Thrombophilias N Allergies (Food, seasonal, environmental ) N Breast Cancer N Drug/Latex Allergies/Reactions N Lung Disease N Defects or Inherited Disease N Breast Problem N Hematologic disorders N Anesthesia Complications N History of STI Y Deep Vein Thrombosis N Polycystic ovary syndrome N History of abnormal pap Y Endometriosis N High Cholesterol N Thyroid Problems N GI Problems N Anemia N Psychiatric Illness Y Ovarian Cancer N Diabetes N Pulmonary (TB, Asthma) N Eczema N Abuse/Domestic Violence N Depression/ depression Y Heart Disease N Pre-Eclampsia N Hypertension N Osteoporosis N Gynecological History Statement/Question Response Abnormal Pap Yes Date of Last Mammogram Date of LMP On BCP's at Conception? 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 Y Menses Monthly N Date of DEXA bone scan Age of first menstrual cycle 10 Date of Last Pap Smear 11/03/2023 Sexual Problems? N LMP Unknown Obstetrics History GPAL:G 3 P 2 0 1 2 Type Value Full Term 2 Spontaneous 1 Living 2 Total 3 Past Encounters Encounter ID Performer Location Encounter Start Date Encounter Closed Date Diagnosis/Indication Diagnosis SNOMED-CT Code Diagnosis ICD10 Code Diagnosis Note [id number] MD Michi Navarrete [address] [address] 06/30/2020 16:14:16 06/30/2020 18:10:55 Routine care 715263079 Z34.82 [id number] MD Michi Navarrete [address],[place] [address] 06/30/2020 16:58:26 07/01/2020 08:39:06 [id number] MD Michi Navarrete [address],[place] [address] 07/30/2020 10:05:33 07/30/2020 11:58:22 screening for malformation 926926295 Z36.3 [id number] MD Michi Navarrete [address],[place] [address] 08/06/2020 10:41:02 08/06/2020 12:44:03 Routine care 067832140 Z34.82 [id number] Deloris Langley CNM [facility] [address],[place] [address] 09/10/2020 10:15:22 09/10/2020 11:40:41 Routine care 412760607 Z34.92 Additional precaution shruthi measures were taken to minimize potential exposure to the Covid-19 virus during this patient s visit, including available hand airbrush artist upon arrive, temperatur e check and being asked a series of screening questions. All staff wore face coverings during this encounter, as well as provided additional cleaning and sanitizing of all surfaces, including countertop s, pens, chairs, door handles, light switches, etc, prior to and following the patient s visit. [id number] MD Michi Navarrete [address],[place] [address] 09/10/2020 10:17:03 09/10/2020 11:16:43 screening [id number] Z36.2 [id number] Neftali Bertrand MD [facility] [address],[place] [address] 09/25/2020 11:49:36 09/25/2020 12:30:59 Routine care 688851306 Z34.82 [id number] Deloris Langley CNM [facility] [address],[place] [address] 10/13/2020 17:42:51 10/13/2020 23:45:25 [id number] Andreia Cerda MD [facility] [address],[place] [address] 10/28/2020 13:49:10 10/28/2020 15:39:14 Routine care 587786617 Z34.83 [id number] [facility] [address],[place] [address] 11/11/2020 14:14:48 11/11/2020 14:39:44 Routine care 289982483 Z34.92 Additional precaution shruthi measures were taken to minimize potential exposure to the Covid-19 virus during this patient s visit, including available hand airbrush artist upon arrive, temperatur e check and being asked a series of screening questions. All staff wore face coverings during this encounter, as well as provided additional cleaning and sanitizing of all surfaces, including countertop s, pens, chairs, door handles, light switches, etc, prior to and following the patient s visit. [id number] [facility] [address],[place] [address] 11/21/2020 14:25:49 11/21/2020 15:30:21 Routine care 237287118 Z34.93 [id number] Andreia Cerda MD [facility] [address],[place] [address] 11/25/2020 16:40:14 11/25/2020 17:17:40 Routine care 849750160 Z34.83 [id number] Deloris [facility] [address],[place] [address] 12/02/2020 16:11:11 12/02/2020 21:14:43 Routine care 250318074 Z34.92 Additional precaution shruthi measures were taken to minimize potential exposure to the Covid-19 virus during this patient s visit, including available hand airbrush artist upon arrive, temperatur e check and being asked a series of screening questions. All staff wore face coverings during this encounter, as well as provided additional cleaning and sanitizing of all surfaces, including countertop s, pens, chairs, door handles, light switches, etc, prior to and following the patient s visit. [id number] Andreia Cerda MD [facility] [address],[place] [address] 12/09/2020 14:42:57 12/09/2020 16:00:07 -induced hypertension 20442327 O13.9 [id number] Andreia Cerda MD [facility] [address],[place] [address] 02/17/2021 11:29:12 02/17/2021 14:47:01 Contraception care management 138350121 Z30.9 Generalize d anxiety disorder 99443361 F41.1 [id number] Neftali Bertrand MD [facility] [address],[place] [address] 02/28/2021 10:01:25 02/28/2021 11:23:25 Contraception care management 759556604 Z30.9 Nexplanon inserted without complicati ons, Pt. given precaution s [id number] Danette Duggan , [facility] [address],[place] [address] 05/13/2021 12:46:36 05/13/2021 14:15:21 Vaginitis 52004872 N76.0 Will send swab vagDecline d need std screenRx sent for treatmentD AILY vegetable based moisturize r!! Abnormal u terine bleeding 6622821629 9100 N93.9 Nexplanon spotting x 2.5mos now (has only had nexplanon for this long).Havi ng to wear pads is irritating her vagina.SLY ND 1pk given to help stop spottingWi ll f/u at her [facility] visit at the end of this month. Time spent in visit is a total of 18 mins with at least 50% of visit consisting of counseling and review of plan of care.Addit ional precaution shruthi measures were taken to minimize potential exposure to the Covid-19 virus during this patient s visit, including available hand airbrush artist upon arrive, temperatur e check and being asked a series of screening questions. All staff wore face coverings during this encounter, as well as provided additional cleaning and sanitizing of all surfaces, including countertop s, pens, chairs, door handles, light switches, etc, prior to and following the patient s visit. [id number] Andreia Cerda MD [facility] [address],[place] [address] 06/10/2021 12:10:41 06/10/2021 13:11:35 Gynecologic examination 23068322 Z01.419 Z11.51 Surveillan ce of subcutaneous contraceptive implant 700894957 Z30.46 Venereal d isease screening 359007903 Z11.3 [id number] Andreia Cerda MD [facility] [address],[place] [address] 07/29/2021 14:28:45 07/29/2021 15:55:16 test negative 892029407 Z32.02 Low grade squamous intraepithelial lesion on cervical Papanicolaou smear 4852577806 9105 R87.612 Human horace lloma virus infection 254948090 B97.7 [id number] Danette Duggan [facility] [address],[place] [address] 11/24/2021 16:07:38 11/24/2021 16:44:11 Vaginitis 36089098 N76.0 Small areas appear to be infected hair follicles. abx Ji kraft Time spent in visit is a total of 30 mins with at least 50% of visit consisting of counseling and review of plan of care. [facility] 117725682 Z30.9 Interested in both Mirena/Dep o injections Last time wanted to go back to Depo her insurance did not cover this medication .We will send it.If it's not covered then she will get an IUD Mirena when she comes to get her nexplanon removed. 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 I have discussed in detail all risks and benefits including risk of infection and perforatio n. She understand s she will need to contact office with next menses or may abstain, complete serum HCG day before placement, if neg can have IUD placed next day. Aware of need to verify with insurance device coverage. Literature given. All questions answered to patient satisfacti on. Depo.Depo- Provera is a female hormonal method of control. It s very effective in preventing . Depo-Prove ra contains a synthetic (man-made) form of the hormone progestero ne, called depo medroxypro gesterone acetate (DMPA). The Depo-Prove ra injection gives 3 months protectio n against . You should get one injection every 3 months (13 weeks) to get the best protection against . It s safe to get your injection up to 3 weeks earlier if you can t get your next injection in exactly 13 weeks. This will need to be given between 1-7 of next menstrual cycle. Condoms or other secondary BC method is advised for at least the first 4wks. Possible SE's include: Mood changes, AUB, Dizziness, H/A's, bloating, loss of menstrual cycle, weight gain approx 5#'s every year for the first 3yrs. Does not prevent against STD's. Typical use only 6 out of every 100 women will become . Perfect use only 1 out of every 100 women will become . It is recommende d for Depo to be initiated at least 2yrs after you have started your menstrual cycle to protect bone health as there is a risk of bone density loss. This is usually reversible once this medication is stopped. While on this medication recommend increasing calcium in diet & taking calcium 1300mg-180 0mg daily along with vicenta D daily to prevent bone loss along with regular exercise. There is less of a risk of bone loss after age 18yo. After 3-5yrs use it may be recommende d to complete a dexa scan. This can be discussed with your healthcare provider. [id number] Danette Duggan [facility] [address],[place] [address] 12/08/2021 15:47:33 12/08/2021 17:14:37 Screening procedure 26894555 Z13.9 Contracept ion care management 076417058 Z30.9 Depo given in right upper buttocksRT O next Depo #2 between 02/23-03/09. Depo-Prove ra is a female hormonal method of control. It s very effective in preventing . Depo-Prove ra contains a synthetic (man-made) form of the hormone progestero ne, called depo medroxypro gesterone acetate (DMPA). The Depo-Prove ra injection gives 3 months protectio n against . You should get one injection every 3 months (13 weeks) to get the best protection against . It s safe to get your injection up to 3 weeks earlier if you can t get your next injection in exactly 13 weeks. This will need to be given between 1-7 of next menstrual cycle. Condoms or other secondary BC method is advised for at least the first 4wks. Possible SE's include: Mood changes, AUB, Dizziness, H/A's, bloating, loss of menstrual cycle, weight gain approx 5#'s every year for the first 3yrs. Does not prevent against STD's. Typical use only 6 out of every 100 women will become . Perfect use only 1 out of every 100 women will become . It is recommende d for Depo to be initiated at least 2yrs after you have started your menstrual cycle to protect bone health as there is a risk of bone density loss. This is usually reversible once this medication is stopped. While on this medication recommend increasing calcium in diet & taking calcium 1300mg-180 0mg daily along with vicenta D daily to prevent bone loss along with regular exercise. There is less of a risk of bone loss after age 18yo. After 3-5yrs use it may be recommende d to complete a dexa scan. This can be discussed with your healthcare provider. Removal of subcutaneous contraceptive 963754019 Z30.46 Removal site was cleansed with betadine and 3cc of lidocaine used for anesthesia . Device was removed in normal fashion without difficulty . Steri stips and pressure bandage placed. Depo injection #1 given [id number] TERRI [facility] [address],[place] [address] 12/16/2021 15:50:10 12/16/2021 17:10:12 Condyloma acuminata of vulva 592564747 A63.0 TCA appliedSee procedure notes.RTO x 2wks [id number] Danette Duggan [facility] [address],[place] [address] 02/23/2022 14:03:23 02/24/2022 16:21:23 Contraception care management 913115985 Z30.9 Depo given in right upper buttocksRT O next Depo #2 between 02/23-03/09. Depo-Prove ra is a female hormonal method of control. It s very effective in preventing . Depo-Prove ra contains a synthetic (man-made) form of the hormone progestero ne, called depo medroxypro gesterone acetate (DMPA). The Depo-Prove ra injection gives 3 months protectio n against . You should get one injection every 3 months (13 weeks) to get the best protection against . It s safe to get your injection up to 3 weeks earlier if you can t get your next injection in exactly 13 weeks. This will need to be given between 1-7 of next menstrual cycle. Condoms or other secondary BC method is advised for at least the first 4wks. Possible SE's include: Mood changes, AUB, Dizziness, H/A's, bloating, loss of menstrual cycle, weight gain approx 5#'s every year for the first 3yrs. Does not prevent against STD's. Typical use only 6 out of every 100 women will become . Perfect use only 1 out of every 100 women will become . It is recommende d for Depo to be initiated at least 2yrs after you have started your menstrual cycle to protect bone health as there is a risk of bone density loss. This is usually reversible once this medication is stopped. While on this medication recommend increasing calcium in diet & taking calcium 1300mg-180 0mg daily along with vicenta D daily to prevent bone loss along with regular exercise. There is less of a risk of bone loss after age 18yo. After 3-5yrs use it may be recommende d to complete a dexa scan. This can be discussed with your healthcare provider. [id number] Danette Duggan [facility] [address],[place] [address] 05/18/2022 13:52:44 05/18/2022 14:31:23 Contraception care management 073368150 Z30.9 [id number] [facility] [address],[place] [address] 08/03/2022 13:57:01 08/03/2022 15:21:37 Contraception care management 190090490 Z30.9 [id number] Andreia Cerda MD [facility] [address],[place] [address] 10/22/2022 14:27:40 10/25/2022 15:19:17 Contraception care management 564255069 Z30.9 Gynecologi c examination 34842686 Z01.419 Genital he rpes simplex 00840986 A60.9 [id number] Andreia Cerda MD [facility] [address],[place] [address] 01/07/2023 11:32:09 01/07/2023 12:40:13 Screening procedure 34788252 Z13.9 High grade squamous intraepithelial lesion on cervical Papanicolaou smear 1019763047 9107 R87.613 Human horace lloma virus infection 340427745 B97.7 [id number] Andreia Cerda MD [facility] [address],[place] [address] 01/24/2023 16:41:55 01/28/2023 15:52:24 Preoperative state 47822034 Z78.9 Cervical intraepithelial neoplasia grade 2 040511716 N87.1 [id number] Andreia Cerda MD [facility] [address],[place] [address] 02/02/2023 15:31:05 02/03/2023 13:48:48 Cervical intraepithelial neoplasia grade 2 972669242 N87.1 History of loop electrosurgical excision procedure 2100747961 9102 Z98.890 [id number] Nasrin Chapa MALINI [facility] [address],[place] [address] 02/10/2023 09:24:39 02/10/2023 15:52:09 Left without being seen 4871855600 9102 Z53.21 no charge [id number] Andreia Cerda MD [facility] [address],[place] [address] 02/11/2023 10:28:33 02/14/2023 16:03:36 Contraception care management 443138707 Z30.9 [id number] Andreia Cerda MD [facility] [address],[place] [address] 02/21/2023 14:43:46 02/21/2023 15:15:50 Cervical intraepithelial neoplasia grade 2 347305848 N87.1 History of loop electrosurgical excision procedure 8877949072 9102 Z98.890 [id number] Andreia Cerda MD [facility] [address],[place] [address] 02/28/2023 14:48:18 03/07/2023 15:18:32 Left lower quadrant pain 269008548 R10.32 Left flank pain 32193847 9 R10.9 [id number] [facility] [address],[place] [address] 05/16/2023 11:21:22 05/16/2023 11:29:31 Contraception care management 225224226 Z30.9 [id number] Nasrin Chapa MALINI [facility] [address],[place] [address] 06/06/2023 11:58:24 06/06/2023 13:45:52 History of abnormal cervical Papanicolaou smear 019269602 Z87.42 repeat pap collectedw ill reach out to pt with result and discuss f/u instructio ns History of loop electrosurgical excision procedure 3827598405 9102 Z98.890 Hemorrhoids 92846087 K64 .9 referral placed Time spent in visit is a total of 18 mins with at least 50% of visit consisting of counseling and review of plan of care. [id number] TERRI Nicole [facility] [address],[place] [address] 08/11/2023 11:26:30 08/11/2023 11:48:28 Contraception care management 381031577 Z30.9 [id number] Nasrin Chapa [facility] [address],[place] [address] 11/03/2023 11:51:58 11/04/2023 10:50:05 Gynecologic examination 76178218 R87.613 WWEpap updatedgc/ ct/trich testing sentgeneti c testing discussed - handout given Take Calcium with Vitamin D daily if not receiving in daily diet.It is strongly advised to have an annual flu shot and up can obtain at most pharmacies . If you have not had a TDap shot in the last 10 years you should obtain one as well. Discussed with patient & provided with informatio n regarding Gardisil vaccine to prevent the 4 strains for HPV that cause cervical cancer if under age 26.Encoura ge safe sexual practices, to use condoms and limit partners if not already in a monogamous relationsh ip.Do monthly self breast exams. BRCA testing is now available for patients with strong genetic history of female cancer. If interested contact the office. Engage in regular exercise. Avoid tobacco and illicit drugs This lifestyle behavior pattern will lead to less health conditions and longer life span. If BMI greater than 25 dietary consult advised. Patient received above instructio ns, and questions have been answered. If you have any questions please call or respond to this email. Patient was made aware of the patient portal and may obtain a paper copy of today's plan if desired. Non-menopa usal hot flash [id number] 89813 R23.2 Vaginitis 36460985 N76.0 vaginitis panel sentrx sent for BV - r/b/a reviewedvu lvar care guidelines discussed Pain in pelvis 97823939 R10.2 pelvic u/s orderedpre cautions reviewed Time spent in visit is a total of 45 mins with at least 50% of visit consisting of counseling and review of plan of care. Contracept ion care management 651230582 Z30.9 Screening procedure 2012 5006 Z13.9 [id number] Nasrin Chapa MALINI [facility] [address] [address] 11/24/2023 10:14:01 11/24/2023 11:11:36 Vaginitis 08247682 N76.0 vaginitis panel sentdeclin ed STI screensusp ect yeast - rx sent, r/b/a reviewedvu lvar care guidelines discussedq uestions answered Time spent in visit is a total of 22 mins with at least 50% of visit consisting of counseling and review of plan of care. [id number] TERRI Nicole [facility] [address],[place] [address] 01/27/2024 09:45:52 01/27/2024 10:34:23 Contraception care management 646858677 Z30.9 [id number] Neftali Bertrand MD [facility] [address],[place] [address] 04/23/2024 15:44:49 04/23/2024 16:32:49 Pain in pelvis 70380713 R10.2 [id number] Neftali Bertrand MD [facility] [address],[place] [address] 04/23/2024 15:45:30 04/23/2024 17:18:11 Contraception care management 407956896 Z30.9 [id number] Neftali Bertrand MD [facility] [address],[place] [address] 07/25/2024 13:59:32 07/26/2024 04:00:48 Contraception care management 552938000 Z30.9 Health Concerns Section Related Observation LastModified by Organization Detai ls LastModified Time None Recorded Concern Status LastModified by Organization Details LastModified Time None Recorded Advance Directives Directive None Recorded Payers Encounter Date Sequence Insurance Name Policy Number Policy Sampson Covered Member ID Sampson Member ID Guarantor Name 11/24/2023 1 [place]) [id number] Jessica Souza [place] [id number] Jessica B [place] 11/24/2023 1 [facility] (MEDICAID HMO) [id number] Jessica Garibay [id number] Jessica Souza [place] 01/27/2024 1 [place] [id number] Jessica Souza [place] [id number] Jessica Souza [place] 01/27/2024 1 [facility] (MEDICAID HMO) [id number] 0003 Jessica Garibay [id number] Jessica Souza [place] 04/23/2024 1 [place] [id number] Jessica Souza [place] [id number] Jessica Souza [place] 04/23/2024 1 [facility] (MEDICAID HMO) [id number] Jessica [place] [id number] Jessica Souza [place] 04/23/2024 1 [place] [id number] Jessica Souza [place] [id number] Jessica Souza [place] 04/23/2024 1 [facility] (MEDICAID HMO) [id number] Jessica [place] [id number] Jessica Souza [place] 07/25/2024 1 [facility] [facility] (MEDICAID HMO) [id number] 0003 Jessica Phoenix [id number] Jessica Souza Phoenix Notes Date Note Type Note Provider Name and Address Organization Details Recorded Time 11/24/2023 text/html 28yo [id number] ents for vaginal itchingsymptoms present x 1 weekitching on and offtreated or BV last month, discharge/odor has resolvedno new partnersgc/ct/trich testing done 10/2022 all negDMPA for BC neg n/v/fneg flu-like symptomsneg pelvic painno new soaps or vaginal products TERRI Nicole [address], [place], [address], [facility] 11/24/2023 11:05:27 OBGyn Episode Ob Episode Information Episode Created Date Number of Fetuses Patient Bloodtype Patient rh Status Prepregnancy Weight lbs Domestic Partner Domestic Partner Phone Father Name Account Development Associate Status 06/30/20 20 1 CLOSED Fetus Data First Name Last Name Admitted to NICU Weight (g) Sex Living Outcome Pediatric Complications Fetus ID Race Codes Race Delivery Type 3486.76 1704 F Full Term 6691 Vaginal Delivery Sergio Calculation Initial Sergio Date Initial Exam Date Initial Exam Provider Initial Ultrasound Date Last Menstrual Period Date Ultra Sound Weeks Gestation 0 Eighteen To Twenty Week Sergio Update Ultra Sound Date Fundal Height At Umbil Quickening Date Ultra Sound Latest Weeks Gestation Final Sergio Confirmed By Final Sergio Confirmed Date Final Sergio Date Ultra Sound Latest Days Gestation 0 0 Menstrual History Last Menstrual Date Menses Monthly On Bcp Conception Prior Menses Frequency Hcg Plus Date Menarche Onset Age Delivery Information Delivery Date Delivery Type Labor Anesthesia Weeks Gestation Incision Type Labor Labor Length Hrs Delivered By Post Complications Tubal Sterilization Discharge Date Comments 8 41 Nadia Discharge Information Feeding Method Contraceptive Method Maternal HG B and HCT Levels Ob Episode Information Episode Created Date Number of Fetuses Patient Bloodtype Patient rh Status Prepregnancy Weight lbs Domestic Partner Domestic Partner Phone Father Name Account Development Associate Status 06/30/20 20 1 CLOSED Fetus Data First Name Last Name Admitted to NICU Weight (g) Sex Living Outcome Pediatric Complications Fetus ID Race Codes Race Delivery Type , Spontane ous 6692 Sergio Calculation Initial Sergio Date Initial Exam Date Initial Exam Provider Initial Ultrasound Date Last Menstrual Period Date Ultra Sound Weeks Gestation 0 Eighteen To Twenty Week Sergio Update Ultra Sound Date Fundal Height At Umbil Quickening Date Ultra Sound Latest Weeks Gestation Final Sergio Confirmed By Final Sergio Confirmed Date Final Sergio Date Ultra Sound Latest Days Gestation 0 0 Menstrual History Last Menstrual Date Menses Monthly On Bcp Conception Prior Menses Frequency Hcg Plus Date Menarche Onset Age Delivery Information Delivery Date Delivery Type Labor Anesthesia Weeks Gestation Incision Type Labor Labor Length Hrs Delivered By Post Complications Tubal Sterilization Discharge Date Comments 6 Discharge Information Feeding Method Contraceptive Method Maternal HG B and HCT Levels Ob Episode Information Episode Created Date Number of Fetuses Patient Bloodtype Patient rh Status Prepregnancy Weight lbs Domestic Partner Domestic Partner Phone Father Name Account Development Associate Status 06/30/20 20 1 A Positive CLOSED Fetus Data First Name Last Name Admitted to NICU Weight (g) Sex Living Outcome Pediatric Complications Fetus ID Race Codes Race Delivery Type 3543.68 75 M true Full Term 6693 Vaginal Delivery Problems Problem Notes Records Reviewed Problem Name Start Date End Date Resolution Snomed Code Not e Anemia [id number] Herpes simplex [id number] Valtr ex 35wks sent 5/4 Dysplasia of cervix [id number] Marijuana user [id number] Palpitations [id number] cardiol ogy cleared until after delivery Dilatation of renal pelvis 07/30/2020 09/10/2020 SELFRESOLVED [id number] bilateral - RESOLVED Sergio Calculation Initial Sergio Date Initial Exam Date Initial Exam Provider Initial Ultrasound Date Last Menstrual Period Date Ultra Sound Weeks Gestation 12/16/2020 06/30/2020 03/11/2020 0 Eighteen To Twenty Week Sergio Update Ultra Sound Date Fundal Height At Umbil Quickening Date Ultra Sound Latest Weeks Gestation Final Sergio Confirmed By Final Sergio Confirmed Date Final Sergio Date Ultra Sound Latest Days Gestation 0 12/17/19 21 0 Pre- Flowsheet Flowsheet Date 06/30/2020 Avendaño Score Blood Edema Fundus Height Fundus Units Glucose Ketones Leukocytes Nitrite Labor Signs Protein Cervic Dilation Cervic Effacement Cervic Station Type Weight in lbs Pre/Post Dialysis Refused Weight 126.55344214799 BP Diastolic BP Location Tested BP Systolic BP Type 71 R arm 109 sitting Fetus Heart Rate Present Fetus Movement Comments this patient is a 25-year-ol d female 3 para 1011 at approximately 15 weeks and 6 days gestation who presents for initial care. Her appears uncomplicated. she is known to be exposed to HSV and HPV. Some records show her as having BHAVIK 3. We will repeat Pap smear today. Pap smear was repeated. The vulva vagina and cervix appear grossly normal. The patient is to have ultrasound today. Dating is still in question given the unavailability of the 11 week ultrasound data. Flowsheet Date 06/30/2020 Avendaño Score Blood Edema Fundus Height Fundus Units Glucose Ketones Leukocytes Nitrite Labor Signs Protein Cervic Dilation Cervic Effacement Cervic Station Type Weight in lbs Pre/Post Dialysis Refused BP Diastolic BP Location Tested BP Systolic BP Type Fetus Heart Rate Present Fetus Movement Comments Flowsheet Date 07/30/2020 Avendaño Score Blood Edema Fundus Height Fundus Units Glucose Ketones Leukocytes Nitrite Labor Signs Protein Cervic Dilation Cervic Effacement Cervic Station Type Weight in lbs Pre/Post Dialysis Refused BP Diastolic BP Location Tested BP Systolic BP Type Fetus Heart Rate Present Fetus Movement Comments Flowsheet Date 08/06/2020 Avendaño Score Blood Edema Fundus Height Fundus Units Glucose Ketones Leukocytes Nitrite Labor Signs Protein Cervic Dilation Cervic Effacement Cervic Station 21 trace Type Weight in lbs Pre/Post Dialysis Refused Weight 141.571542119115 BP Diastolic BP Location Tested BP Systolic BP Type 71 R arm 106 sitting Fetus Heart Rate Present A 145 Fetus Movement A Yes Comments patient was to have hep C dr fair with diabetes testing, no trich done today, she is having genetic testing done today, no complaints. Flowsheet Date 09/10/2020 Avendaño Score Blood Edema Fundus Height Fundus Units Glucose Ketones Leukocytes Nitrite Labor Signs Protein Cervic Dilation Cervic Effacement Cervic Station Type Weight in lbs Pre/Post Dialysis Refused BP Diastolic BP Location Tested BP Systolic BP Type Fetus Heart Rate Present Fetus Movement Comments Flowsheet Date 09/10/2020 Avendaño Score Blood Edema Fundus Height Fundus Units Glucose Ketones Leukocytes Nitrite Labor Signs Protein Cervic Dilation Cervic Effacement Cervic Station none neg Type Weight in lbs Pre/Post Dialysis Refused Weight 145.0378444152 BP Diastolic BP Location Tested BP Systolic BP Type 72 107 Fetus Heart Rate Present Fetus Movement A Yes Comments Doing well. Acid reflux. Dis cussed use of pepcid. Flowsheet Date 09/25/2020 Avendaño Score Blood Edema Fundus Height Fundus Units Glucose Ketones Leukocytes Nitrite Labor Signs Protein Cervic Dilation Cervic Effacement Cervic Station 30 trace Type Weight in lbs Pre/Post Dialysis Refused Weight 148.743939116651 BP Diastolic BP Location Tested BP Systolic BP Type 77 R arm 116 sitting Fetus Heart Rate Present A 145 Fetus Movement A Yes Comments This patient is a 25-year-ol d 3 para 1011 at 28 weeks. She is doing her diabetes testing today. She had episodes of shortness of breath and dizziness early in the and had a cardiac evaluation. We are going to find those records. We will contact the patient with information about these findings. 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 Doing well. Flowsheet Date 10/28/2020 Avendaño Score Blood Edema Fundus Height Fundus Units Glucose Ketones Leukocytes Nitrite Labor Signs Protein Cervic Dilation Cervic Effacement Cervic Station neg none 32 trace Type Weight in lbs Pre/Post Dialysis Refused Weight 154.850009203398 BP Diastolic BP Location Tested BP Systolic BP Type 82 120 Fetus Heart Rate Present A 155 Fetus Movement A Yes Comments Doing well. Good FM. Vlatrex at 35-36 weeks. Precautions given. Consider UDS next visit- none since first visit. Flowsheet Date 11/11/2020 Avendaño Score Blood Edema Fundus Height Fundus Units Glucose Ketones Leukocytes Nitrite Labor Signs Protein Cervic Dilation Cervic Effacement Cervic Station none 35 trace Type Weight in lbs Pre/Post Dialysis Refused Weight 157.400448146234 BP Diastolic BP Location Tested BP Systolic BP Type 77 116 Fetus Heart Rate Present A 145 Fetus Movement A Yes Comments Doing well. Pre admit schedu led. Encouraged tdap. Valtrex sent and pt will start today. Desires delayed cord clamping and skin to skin. Planning to breastfeed. Visit per Z. Due SNM. Flowsheet Date 11/21/2020 Avendaño Score Blood Edema Fundus Height Fundus Units Glucose Ketones Leukocytes Nitrite Labor Signs Protein Cervic Dilation Cervic Effacement Cervic Station neg trace 36 trace 1cm 50% Type Weight in lbs Pre/Post Dialysis Refused Weight 157.800022453168 BP Diastolic BP Location Tested BP Systolic BP Type 73 107 Fetus Heart Rate Present A 145 Fetus Movement A Yes Comments PATIENT STATES THAT HAVING S OME CRAMPING, CONTRACTIONS, SWELLING, AND PRESSURE, reviewed precautions gbs done Flowsheet Date 11/25/2020 Avendaño Score Blood Edema Fundus Height Fundus Units Glucose Ketones Leukocytes Nitrite Labor Signs Protein Cervic Dilation Cervic Effacement Cervic Station none 38 2cm 60% -2 Type Weight in lbs Pre/Post Dialysis Refused Weight 162.058223530729 BP Diastolic BP Location Tested BP Systolic BP Type 77 117 Fetus Heart Rate Present A 150 Fetus Movement A Yes Comments Doing well. SPurts of contra ctions, but always stop. Good FM. GBS neg. Taking her valtrex. Flowsheet Date 12/02/2020 Avendaño Score Blood Edema Fundus Height Fundus Units Glucose Ketones Leukocytes Nitrite Labor Signs Protein Cervic Dilation Cervic Effacement Cervic Station 38 trace 2cm 60% -3 Type Weight in lbs Pre/Post Dialysis Refused Weight 161.431461733290 BP Diastolic BP Location Tested BP Systolic BP Type 74 114 Fetus Heart Rate Present A 140 Fetus Movement A Yes Comments Visit per Z. Due SNM. Doing well. No s/s of an outbreak. Pt is taking her prophylactic valtrex. Labor precautions discussed. Cervix is posterior. Flowsheet Date 12/09/2020 Avendaño Score Blood Edema Fundus Height Fundus Units Glucose Ketones Leukocytes Nitrite Labor Signs Protein Cervic Dilation Cervic Effacement Cervic Station none 38 3cm 50% -3 Type Weight in lbs Pre/Post Dialysis Refused Weight 162.188720348220 BP Diastolic BP Location Tested BP Systolic BP Type 104 150 92 148 Fetus Heart Rate Present A 130 Fetus Movement A Yes Comments Doing fine. Irregular contra ctions. Had a mild SAVAGE this am, went away with one coffee. BPs elevated sig over baseline. Given 39 weeks, will send to [facility] for induction. Taking valtrex. GBS neg. Report called to [facility] Zuniga rn. Menstrual History Last Menstrual Date Menses Monthly On Bcp Conception Prior Menses Frequency Hcg Plus Date Menarche Onset Age 0903/11/2020 Genetic Screening And Infection History Question Response Note Mental Retardation/Autism false Patient's Age Will Be 35 Yea rs Or Older At Estimated Date of Delivery false Thalassemia (Pashto, Chinese, Mediterranean, Or Background): MCV < 80 false Neural Tube Defect (Meningomyelocele, Spina Bifi da, Or Anencephaly) false Congenital Heart Defect false Down Syndrome false Rhett-Sachs (eg, Religious, Cajun, Romanian-Burmese) f alse Jese Disease false Sickle Cell Disease Or Trait () false Hemophilia Or Other Blood Disorders false Muscular Dystrophy false Cystic Fibrosis false Kenvil's Chorea false Intellectual Disability/Autism false If Yes, Was Person Tested For Fragile X? false Other Inherited Genetic Or Chromosomal Disorder false Maternal Metabolic Disorder (eg, Type 1 Diabetes , PKU) false Patient Or Baby's Father Had A Child With Defects Not Listed Above false Recurrent Loss, Or A Stillbirth false Medications (including Suppl ements, Vitamins, Herbs, OTC Drugs), Illicit/Recreational Drugs, Alcohol false If Yes, Agent(s) And Strength/Dosage false Any Other Genetic History false Live With Someone With TB Or Exposed To TB false Patient Or Partner Has History Of Genital Herpes false Rash Or Viral Illness Since Last Menstrual Perio d false History Of STD, Gonorrhea, Chlamydia, HPV, Syphi lis true Hsv, hpv Other Infection History false History of HIV false History of Hepatitis false Prior GBS-infected child false Hemoglobinopathy Or Carrier false Other Structural Defect false Recent Travel History Outside of Country false Delivery Information Delivery Date Delivery Type Labor Anesthesia Weeks Gestation Incision Type Labor Labor Length Hrs Delivered By Post Complications Tubal Sterilization Discharge Date Comments 1 Induce d Regional-Ep idural 39 Andreia Romero MD [place] Discharge Information Feeding Method Contraceptive Method Maternal HG B and HCT Levels
--- OUTSIDE RECORDS SUMMARY | 2024-12-18 01:26 | XMS_ITS | Patient Health Record ---
Author Organization [facility] Address [address] [place] [address] Care Team Providers Care Programming Equipment Operator Name Role Phone Sae Buenrostro Primary Care Provider Allergies No Known Allergies Reason For Referral Reason Therapy - client wou ld like to engage in therapy and needs information on this service. Diagnosis 1 Bipolar affective di sorder (F31.9) Diagnosis 2 Borderline personali ty disorder (F60.3) Referral Organization [facility] Referring Provider First Name Sae Referring Provider Last Name Porter Referring Provider Speciality Psychiatry Referred Provider [facility] Clinical Notes Flor Gu 12/04/2024 08:52:31 AM >HN attempted to call the client. HN had to leave a VM for the client with the phone number to [place] so she could call them to complete [...] 12/06/2024 Encounters Encounter Location Date Provider Diagnosis [address] [place] [address] 08/22/2024 Sae Buenrostro Bipolar II disorder F31.81 and Borderline personality disorder F60.[address] [address] 11/28/2024 Sae Buenrostro Bipolar affective disorder F31.9 and Borderline personality disorder F60.[address] [place] [address] 12/06/2024 Sae Buenrostro Bipolar affective disorder F31.9 and Borderline personality disorder F60.[address] [address] 08/22/2024 Sae Buenrostro Assessments Encounter Date Diagnosis [...] number to the 24-hour crisis line at [facility]. Questions addressed. Client verbalized understanding of all [...] number to the 24-hour crisis line at [facility]. Questions addressed. Client verbalized understanding of all [...] number to the 24-hour crisis line at [facility]. Questions addressed. Client verbalized understanding of all [...] 12/25/2024 10:20:00 AM, [address], [place], [address], Insurance Providers Payer Name Payer Address Payer Phone Subscriber Number Group Number Insured Name Patient Relationship to Insured Coverage Start Date Coverage End Date [employer] [address] [place] [phone] [id number] Jessica Garibay Self - patient is the insured 5 [employer] [address] [place] [address] [id number] Jessica Garibay Self - patient is the insured 5 Medical (General) History Medical History History ICD Code Bipolar II disorder Bipolar II disorder F31.81 Hospitalization History Reason Date(Month/Year) -[facility] 2023
[2024-12-18] MEDS: LACTATED RINGERS 1,000 ML 30 ML IV CONT ×2 (06:30→08:31)
--- NOTE | 2024-12-18 06:47 | P.PNAN_ITS ---
Anes - Initial Pre Proc Eval Procedure: Operation Date: 12/18/24 07:30 Proposed Procedures p Bilateral Breast Augmentation with Galaflex - Avery Figueroa MD Date/Time: 12/18/24 06:47 Surgeon: Avery Figueroa MD Pre Op Diagnosis: micromastia Patient Data Age: 29 Gender: F Height: 1.7 m Weight: 53 kg Allergies Allergy/AdvReac Type Severity Reaction Status Date / Time No Known Allergies Allergy Verified 12/11/24 10:32 Home Medications ?Medication ?Instructions ?Recorded ?Confirmed ?Type cariprazine 1.5 mg capsule 1.5 mg PO DAILY 12/11/24 12/11/24 History (Vraylar) mirtazapine 15 mg tablet 15 mg PO HS 12/11/24 12/11/24 History Patient hx anesthesia problems: none Family hx anesthesia problems: none Results Review: All pre-operative results and documents have been reviewed as part of the pre- operative evaluation. [facility] Past Medical History Medical History Panic disorder PTSD (post-traumatic stress disorder) Mitral valve regurgitation Family History Family History Father Renal cancer Congestive heart failure Hypertension Grandparent Diabetes mellitus Mother IBS (irritable bowel syndrome) Social History Social History Years smoked: 6 Smoking status: Former smoker Tobacco type: cigarettes and e-cigarettes/vaping Smoking end date: 11/08/24 Alcohol intake: never Substance use: current Substance use type: marijuana Other substance usage details: MARIJUANA TID Living arrangements: with family Additional living arrangements comments: CHILDREN Spiritual care concerns: No Anes - Eval Final PreProcedure Day of Procedure 12/18/24 06:47 Patient weight: thin Heart: regular rate and rhythm Lungs: clear to auscultation Airway: Mallampati scale class II Neurological: alert and oriented Last oral intake: >/= 8 hours ASA classification: II Emergent: no Anesthetic plan: proceed Anesthesia type and monitoring: general LMA and standard monitoring Results Review: All pre-operative results and documents have been reviewed as part of the pre- operative evaluation. Informed Consent: The patient's anesthetic plan and its attendant risks and benefits were discussed with the patient/family/POA. Questions were solicited and answers provided to the satisfaction of the patient/family/POA.
[2024-12-18] MEDS: SCOPOLAMINE 1 MG PATCH 1 PATCH TRANSDERM (07:01)
[2024-12-18] MEDS: TRANEXAMIC ACID 1,000MG/ISO100 1,000 MG/100 ML BAG 200 MG IVPB (07:02)
--- NOTE | 2024-12-18 07:04 | WPDHPUPDATE1 ---
History and Physical Update Update Date/Time: 12/18/24 07:04 History and Physical has been reviewed, including an updated exam of the patient. There are NO changes in the patient's condition. Risks, benefits, and alternatives have been discussed and questions answered. Patient agrees to proceed with procedure.
--- NOTE | 2024-12-18 07:04 | W.PM.PROC2 ---
Procedure Note - Detailed Date of Procedure 12/18/24 Pre-op Diagnosis micromastia Post-op Diagnosis Same Procedure Performed Bilateral augmentation mammaplasty with Galaflex Surgeon Avery Figueroa MD Anesthesia General Findings Bilateral Benigno Salinas SofTouch 365 cc Right: REF# [id number] SN [id number] Left: REF# [id number] SN [id number] Description of Procedure She is here today for bilateral breast augmentation. Previously and again today the risks, benefits, alternatives were discussed in extensive detail. I wanted her to be very realistic about the risks involved as well as expectations. We discussed aftercare and what to monitor for. Made sure answered all of her questions to her satisfaction today and consent was obtained. Marked in the preoperative holding area with their verification. The patient was taken to the operating room placed supine on the operating table. Anesthesia was provided by anesthesiology. A surgical time-out was taken. We cleansed the skin and 1% lidocaine and 0.25% Marcaine with epinephrine was used anesthetize as a field block. She was prepped and draped in a standard sterile fashion. Tegaderm nipple Haile were placed. A 15 blade used to make an incision along the inframammary fold. Dissection was continued at 45 degree angle until the chest wall as identified. I incised the pectoralis major along its inferior border and completely released the inferior border leaving the medial border intact. I created a subpectoral pocket in the appropriate dimensions based on our preoperative planning for the implant. I then copiously irrigated with saline solution and verified a strict hemostasis. Next the use a triple antibiotic and Betadine containing solution to irrigate the pocket. I washed my gloves with the triple antibiotic and Betadine solution. We washed the implant immediately upon opening it with this solution and only opened it when we needed it. I used implant funnel and no-touch technique. The implant was introduced into the pocket using the funnel. On the back table Galaflex was soaking in Betadine implant wash. Trimmed and placed along the IMF / lateral fold. Having verified positioning of the implant this was closed using 2-0 PDS followed by 3-0 Monocryl in a running subcuticular 4-0 Monocryl followed by tissue glue. Fluffs and surgical bra were placed. Patient was awoke and taken to PACU without difficulty. All instrument sponge counts were correct at the end of the case. Estimated Blood Loss 20 Drains No Packing No Pathology None sent Complications No immediate complications Condition Stable Disposition PACU
[2024-12-18] MEDS: ONDANSETRON INJ 4 MG/2 ML VIAL IV PUSH ×2 (07:10→09:12)
[2024-12-18] MEDS: NACL 0.9% IRRIG POUR BOTTLE 900 ML, GENTAMICIN SULFATE INJ 160 MG, ceFAZolin 2 GM, POVI... IRRIGATION (07:23)
[2024-12-18] MEDS: LIDO 1%/EPINEPHRINE 1:100,000 50 ML VIAL 30 ML INFILTRATE (07:23)
[2024-12-18] MEDS: ceFAZolin 2 GM/D5W 50 ML 2 GM/50 ML BAG IVPB (07:23)
[2024-12-18] MEDS: BUPivacaine HCL 0.25% PF 30 ML VIAL INFILTRATE (07:23)
[2024-12-18 07:49] LABS: BEDSIDEPREGUCG Negative (Negative)
[2024-12-18] MEDS: fentaNYL CITRATE INJ (*CRX) 100 MCG/2 ML VIAL 25 MCG IV PUSH ×2 (09:00→09:02)
[2024-12-18] MEDS: oxyCODONE HCL (*CRX) 5 MG TAB IR PO (09:54)
== END 2024-12-18 10:38 | disposition home or self-care (01) ==
PROVIDERS: PCP Nurse Practitioner Family; Visit Provider Surgery Plastic and Reconstructive Surgery
PROC: (CPT 19325; principal; 2024-12-18 07:30)
DX: Z41.1 Encounter for cosmetic surgery (principal); N64.82 Hypoplasia of breast
CPT/HCPCS: 19325; 15777 ×2; A9270; J0690; J1100; J1171; J1200; J1580; J2003; J2004; J2250; J2405; J2704; J3010; J7120